=== PATIENT | female | born 1965 | race Caucasian/White ===

== ENCOUNTER → 2017-11-23 | Outpatient (CLI) | payer BC ==
--- NOTE | 2017-11-23 16:06 | Diagnostic Imaging Report ---
INDICATION: Clinical findings of goiter. TECHNIQUE: Grayscale sonographic images of the thyroid gland. CORRELATION STUDY: None. FINDINGS: RIGHT LOBE: 4.8 x 1.3 x 1.2 cm. Within the superior medial aspect a very small slightly hypoechoic nodule measures 4 x 3 x 3 mm. Remainder of the right thyroid gland echotexture is unremarkable. LEFT LOBE: 4.4 x 1.4 x 1.0 cm. There is normal echotexture about the left lobe. Isthmus appears unremarkable. IMPRESSION: Slightly elongated thyroid gland. Very small, nonspecific nodule about the right lobe. (Normal gland size: 4-5 x 2 x 2 cm) Dictated by: Dictated on workstation # [id number]
--- NOTE | 2017-12-05 14:22 | Diagnostic Imaging Report ---
Indication: Routine screening. Comparison is made with prior mammogram from 10/02/2014 and 03/10/2010. 2-D and 3-D bilateral mammography was performed with CAD. Implant protocol was utilized. Scattered fibroglandular densities are identified bilaterally. The patient has bilateral breast implants. Implant contours appear to be smooth. No mass or malignant appearing microcalcifications are seen. The axillae are unremarkable. Impression: BI-RADS category 2 No mammographic features suspicious for malignancy are identified. ACR BI-RADS Category 2: Benign findings. Result letter will be mailed to the patient. Note: At least 10% of breast cancer is not imaged by mammography. Dictated by: Dictated on workstation # [id number]
== END ==
LOC: RAD 15:20
PROVIDERS: ATTEND Family Medicine
DX: Z12.31 Encounter for screening mammogram for malignant neoplasm of breast (principal); E04.9 Nontoxic goiter, unspecified
CPT/HCPCS: 76536; 77067

== ENCOUNTER → 2018-04-05 | Outpatient (CLI) | payer BC ==
[~2018-04-05] VITALS: Ht 172.7 cm; Wt 62.1 kg
[~2018-04-05] MED LIST: ATOR10TA66 PO; CATHETER FLUSH 10 ML SYR IV PRN; METO-352 PO; VALA500T PO
[2018-04-05 09:13] VITALS: BP 126/82
[2018-04-05 09:21] VITALS: BP 149/80
[2018-04-05 09:24] VITALS: BP 151/81
--- NOTE | 2018-04-05 20:05 | STRESS TEST ---
DATE OF SERVICE: 04/05/2018 EXERCISE MYOVIEW STRESS TEST REPORT Baseline heart rate is 60. Baseline blood pressure 142/76. Baseline EKG is sinus rhythm with no ischemic changes. In summary, the patient was injected with 10.24 mCi of technetium-99 Myoview and the resting images were obtained. Then, the patient started exercising with baseline heart rate, blood pressure and EKG mentioned above. She was able to exercise for a total of 11 minutes on standard Niall protocol. With peak exercise level, EKG was showing [address] depression in II, III, aVF, V4 and V5. Blood pressure was 170/80. She was injected with 31.8 mCi of technetium-99 Myoview with peak stress level. During recovery, heart rate and blood pressure returned to baseline. EKG returned to baseline. The resting and stressed images were reviewed and compared in the short axis, horizontal long axis, and vertical long axis views. Review of the images showed breast attenuation affecting the quality of the images. There is questionable reversible ischemia involving the mid to apical anterior wall and anterolateral wall. SSS is 7, SDS 7, TID value 1.08. On the gated images, the left ventricle appeared to be normal size with normal contractility. Calculated ejection fraction 60%. CONCLUSION: 1. Excellent exercise tolerance, a total of 11 minutes on standard Niall protocol, total of 12.1 METS achieving 84% of maximum expected heart rate. 2. Appropriate heart rate and blood pressure response to exercise returned to baseline during recovery. 3. Nondiagnostic EKG changes with exercise returned to baseline during recovery. 4. Breast attenuation with mild reversible ischemia involving the whole anterior wall and anterolateral wall. 5. Normal left ventricular size with normal contractility. Calculated ejection fraction 60%. Job ID: [id number] DocumentID: [id number] Dictated Date: 04/05/2018 16:40:20 Building Economist Date: 04/05/2018 20:04:44 Dictated By: LESLIE MCCRACKEN MD
== END ==
LOC: CARD 07:28
PROVIDERS: ATTEND Internal Medicine Cardiovascular Disease
DX: R00.2 Palpitations (principal); R06.02 Shortness of breath; E07.9 Disorder of thyroid, unspecified; G43.909 Migraine, unspecified, not intractable, without status migrainosus
CPT/HCPCS: 78452; 93017

== ENCOUNTER → 2018-04-13 | Outpatient (CLI) | payer BC ==
[~2018-04-13] MED LIST changes: -CATHETER FLUSH 10 ML SYR IV PRN
== END ==
LOC: CARD 12:53
PROVIDERS: ATTEND Internal Medicine Cardiovascular Disease
DX: R00.2 Palpitations (principal); R06.02 Shortness of breath; E07.9 Disorder of thyroid, unspecified; G43.909 Migraine, unspecified, not intractable, without status migrainosus
CPT/HCPCS: 93306

== ENCOUNTER 2018-04-19 07:04 | Day surgery (SDC) | payer BC ==
[~2018-04-19] VITALS: Ht 172.7 cm; Wt 61.7 kg
[2018-04-19] VITALS (12 sets, daily range): BP systolic 125–142; BP diastolic 70–87
--- OUTSIDE RECORDS SUMMARY | 2018-04-19 07:17 | XMS REPORT ---
Author Author REBECA MARIE Organization [employer] Address Unknown Phone Unavailable Care Team Providers Care Transportation Aid Name Role Phone REBECA MARIE Unavailable Allergies No Known Allergies Problems Problem Type Condition Code Onset Dates Condition Status Problem Menopausal and female climacteric states N95.1 Active Problem Acquired hypothyroidism E03.9 Active Problem Essential hypertension I10 Active Assessment Acquired hypothyroidism E03.9 Active Assessment Encounter for medical examination to establish care Z00.00 Active Problem Encounter for medical examination to establish care Z00.00 Active Assessment Essential hypertension I10 Active Medications No Known Medications Procedures Procedure Coding System Code Date ASSAY OF FREE THYROXINE CPT-4 34194 May 18, 2016 COMPLETE CBC W/AUTO DIFF WBC CPT-4 25535 May 18, 2016 ASSAY THYROID STIM HORMONE CPT-4 58432 May 18, 2016 COMPREHEN METABOLIC PANEL CPT-4 77747 May 18, 2016 LIPID PANEL CPT-4 67171 May 18, 2016 VENIPUNCT, ROUTINE* CPT-4 02215 May 18, 2016 Results Name Result Date Reference Range Unit Abnormality Flag ROUTINE VENIPUNCTURE Summary Purpose eClinical[employer] Submission
--- OUTSIDE RECORDS SUMMARY | 2018-04-19 07:17 | XMS REPORT ---
Author Author CANDACE FONSECA [facility] Address [address] [place] [address] Care Team Providers Care Record Tester Name Role Phone HIGINIOVALCANDACE Unavailable PROBLEMS Type Condition ICD9-CM Code [id number] Code Onset Dates Condition Status SNOMED Code Assessment Sore throat J02.9 Feb, Active 794535985 ALLERGIES Substance Reaction Event Type Date Status Sulfamethoxazole-Trimethoprim Unknown Drug Allergy Feb, Active SOCIAL HISTORY No smoking Hx information available PLAN OF CARE VITAL SIGNS Height 68 in 2016-03-23 Weight 150 lbs 2016-03-23 Heart Rate 76 bpm 2016-03-23 Respiratory Rate 18 2016-03-23 BMI 22.80 kg/m2 2016-03-23 Blood pressure systolic 120 mmHg 2016-03-23 Blood pressure diastolic 68 mmHg 2016-03-23 MEDICATIONS Medication Instructions Dosage Frequency Start Date End Date Duration Status Estrace 0.1 MG/GM Active Toprol XL 25 MG Orally Once a day 1 tablet 24h Active Levothyroxine Sodium 25 MCG Orally Once a day 1 tablet 24h Active Valacyclovir HCl 500 MG Orally Once a day 1 tablet 24h Active Divigel 1 MG/GM Transdermal Once a day 1 application to affected area 24h Active RESULTS Name Result Date Reference Range STREP A (IN HOUSE) STREP A negative Control + Lot # [id number] Exp date 06/23/2016 PROCEDURES Procedure Date Ordered Related Diagnosis Body Site STREP A ASSAY W/OPTIC Mar 23, 2016 Office Visit, Est Pt., Level 3 Mar 23, 2016 IMMUNIZATIONS No Known Immunizations
--- OUTSIDE RECORDS SUMMARY | 2018-04-19 07:17 | XMS REPORT ---
Author Author REBECA MARIE [facility] [employer] Address Unknown Phone Unavailable Care Team Providers Care Merchandising Execution Associate Name Role Phone REBECA MARIE Unavailable Allergies No Known Allergies Problems Problem Type Condition Code Onset Dates Condition Status Problem Menopausal and female climacteric states N95.1 Active Problem Acquired hypothyroidism E03.9 Active Problem Essential hypertension I10 Active Problem Encounter for medical examination to establish care Z00.00 Active Medications Medication Code System Code Instructions Start Date End Date Status Dosage Atorvastatin Calcium [facility] [address]-84 10 mg Orally Once a day May 31, 2016 1 tablet Results No Known Results Summary Purpose eClinicalWorks Submission
--- OUTSIDE RECORDS SUMMARY | 2018-04-19 07:17 | XMS REPORT ---
Author Author REBECA MARIE [facility] Address [address] [place] [address] Care Team Providers Care Power Shear Operator Name Role Phone REBECA MARIE Unavailable PROBLEMS Type Condition ICD9-CM Code [id number] Code Onset Dates Condition Status SNOMED Code Problem Seasonal allergic rhinitis, unspecified allergic rhinitis trigger J30.2 Active 564730267 Problem Hypercholesterolemia E78.00 Active 41367409 Problem Acquired hypothyroidism E03.9 Active 712582821 Problem Essential hypertension I10 Active 69922755 Problem Encounter for medical examination to establish care Z00.00 Active 189014528 Problem Menopausal and female climacteric states N95.1 Active 029076640 ALLERGIES Unknown Allergies SOCIAL HISTORY No smoking Hx information available PLAN OF CARE VITAL SIGNS MEDICATIONS Unknown Medications RESULTS No Results PROCEDURES No Known procedures IMMUNIZATIONS No Known Immunizations
--- OUTSIDE RECORDS SUMMARY | 2018-04-19 07:17 | XMS REPORT ---
Author Author REBECA MARIE [facility] Address [address] [place] [address] Care Team Providers Care Account Management Assistant Name Role Phone REBECA MARIE Unavailable PROBLEMS Type Condition ICD9-CM Code [id number] Code Onset Dates Condition Status SNOMED Code Problem Essential hypertension I10 Active 79474388 Problem Menopausal and female climacteric states N95.1 Active 303531700 Problem Acquired hypothyroidism E03.9 Active 061682794 Problem Encounter for medical examination to establish care Z00.00 Active 141853462 ALLERGIES Unknown Allergies SOCIAL HISTORY No smoking Hx information available PLAN OF CARE VITAL SIGNS MEDICATIONS Medication Instructions Dosage Frequency Start Date End Date Duration Status Levothyroxine Sodium 25 MCG Orally Once a day 1 tablet 24h Active Toprol XL 25 MG Orally Once a day 1 tablet 24h Active Valacyclovir HCl 500 MG Orally Once a day 1 tablet 24h Active RESULTS No Results PROCEDURES No Known procedures IMMUNIZATIONS No Known Immunizations
--- OUTSIDE RECORDS SUMMARY | 2018-04-19 07:17 | XMS REPORT ---
Author Author REBECA MARIE Organization [employer] Address Unknown Phone Unavailable Care Team Providers Care Operations Advisor Name Role Phone REBECA MARIE Unavailable Allergies No Known Allergies Problems Problem Type Condition Code Onset Dates Condition Status Problem Menopausal and female climacteric states N95.1 Active Problem Acquired hypothyroidism E03.9 Active Problem Essential hypertension I10 Active Problem Encounter for medical examination to establish care Z00.00 Active Medications Medication Code System Code Instructions Start Date End Date Status Dosage Estrace [facility] [address]-44 0.1 MG/GM Vaginal Once a day 1 gram Premarin [facility] [address]-19 0.625 MG/GM Vaginal Once a day May 06, 2016 as directed Divigel [facility] [address]-22 1 MG/GM Transdermal Once a day 1 application to affected area Results No Known Results Summary Purpose eClinicalWorks Submission
--- OUTSIDE RECORDS SUMMARY | 2018-04-19 07:17 | XMS REPORT ---
Author Author Jordan REBECA Organization [facility] Address [address] [place] [address] Care Team Providers Care Lock Tender Chief Operator Name Role Phone REBECA Ortega Unavailable PROBLEMS Type Condition ICD9-CM Code IMU07-SI Code Onset Dates Condition Status SNOMED Code Problem Encounter for medical examination to establish care Z00.00 Active 382866498 Problem Acquired hypothyroidism E03.9 Active 188061484 Problem Essential hypertension I10 Active 42410694 Problem Tachycardia R00.0 Active 5074454 Problem Herpes B00.9 Active 06116930 Problem Hypercholesterolemia E78.00 Active 95417470 Problem Menopausal and female climacteric states N95.1 Active 394122863 Problem 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 Active 39832248 Problem Seasonal allergic rhinitis, unspecified allergic rhinitis trigger J30.2 Active 811428895 ALLERGIES No Information ENCOUNTERS Encounter Location Date Diagnosis [place] [id number] [address] Aug, 2017 Menopausal and female climacteric states N95.1 [place] [address] [address] May, Essential hypertension I10 ; Tachycardia R00.0 ; Postmenopausal Z78.0 ; Menopausal and female climacteric states N95.1 ; Acquired hypothyroidism E03.9 ; 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 ; Herpes B00.9 and Bronchitis J40 [facility] [address] [address] Apr, Acquired hypothyroidism E03.9 [facility] [address] [address] Apr, Essential hypertension I10 ; Acquired hypothyroidism E03.9 and Hypercholesterolemia E78.00 [place] [address] [place] [id number] [place] [address] Apr, [facility] [address] [place] [id number] [place] [address] Mar, Essential hypertension I10 ; Hypercholesterolemia E78.00 and Acquired hypothyroidism E03.9 [facility] [address] [place] [id number] [place] [address] November, [facility] [address] [address] November, [facility] [address] [place] [id number] [place] [address] Oct, Essential hypertension I10 ; Acquired hypothyroidism E03.9 ; Menopausal and female climacteric states N95.1 ; Hypercholesterolemia E78.00 and Seasonal allergic rhinitis, unspecified allergic rhinitis trigger J30.2 [facility] [address] [address] Oct, [facility] [address] [place] [id number] [place] [address] Oct, Bronchitis J40 and Cough R05 [facility] [address] [place] [id number] [place] [address] Oct, Seasonal allergic rhinitis, unspecified allergic rhinitis trigger J30.2 [facility] [address] [place] [id number] [place] [address] Jul, [facility] [address] [place] [id number] [place] [address] Apr, [facility] [address] [place] [id number] [place] [address] Apr, Essential hypertension I10 ; Acquired hypothyroidism E03.9 and Encounter for medical examination to establish care Z00.00 [facility] [address] [place] [id number] [place] [id number] Apr, Pharyngitis, unspecified etiology J02.9 [facility] [address], [place] [address] Apr, [facility] [address] [place] [address] Mar, Essential hypertension I10 ; Menopausal and female climacteric states N95.1 ; Acquired hypothyroidism E03.9 and Encounter for medical examination to establish care Z00.00 [facility] [address] [place] [id number] [place] [address] Mar, [facility] [address] [place] [id number] [place] [address] Mar, [facility] [address] [place] [id number] [place] [address] Mar, [facility] [address] [place] [id number] [place] [phone] Feb, Sore throat J02.9 [facility] [address] [place] [address] Sep, Sore throat J02.9 and Acute streptococcal pharyngitis J02.0 [facility] [address] [place] [id number] [place] [address] Mar, Folliculitis 704.8 IMMUNIZATIONS No Known Immunizations SOCIAL HISTORY Never Assessed REASON FOR VISIT Requests return call PLAN OF CARE VITAL SIGNS MEDICATIONS Unknown Medications RESULTS No Results PROCEDURES No Known procedures INSTRUCTIONS MEDICATIONS ADMINISTERED No Known Medications MEDICAL (GENERAL) HISTORY Type Description Date Medical History Hypothyroidism Medical History Menopausal Medical History Hypertension Surgical History partial hysterectomy 2005 Surgical History tonsillectomy and adenoidectomy
--- OUTSIDE RECORDS SUMMARY | 2018-04-19 07:17 | XMS REPORT ---
Author Author REBECA MARIE [facility] Address [address] [place] [address] Care Team Providers Care Special Programs Director Name Role Phone REBECA MARIE Unavailable PROBLEMS Unknown Problems ALLERGIES Unknown Allergies SOCIAL HISTORY No smoking Hx information available PLAN OF CARE VITAL SIGNS MEDICATIONS Medication Instructions Dosage Frequency Start Date End Date Duration Status Toprol XL 25 MG Orally Once a day 1 tablet 24h Active Valacyclovir HCl 500 MG Orally Once a day 1 tablet 24h Active RESULTS No Results PROCEDURES No Known procedures IMMUNIZATIONS No Known Immunizations
--- OUTSIDE RECORDS SUMMARY | 2018-04-19 07:17 | XMS REPORT ---
Author Author IAN MONA Organization [facility] Address [address] [place] [address] Care Team Providers Care Restaurant Manager Name Role Phone MONA SOSA Unavailable PROBLEMS Type Condition ICD9-CM Code MPS35-MV Code Onset Dates Condition Status SNOMED Code Problem Encounter for medical examination to establish care Z00.00 Active 257724881 Problem Acquired hypothyroidism E03.9 Active 848779498 Problem Essential hypertension I10 Active 47438790 Problem Tachycardia R00.0 Active 1909753 Problem Herpes B00.9 Active 89022648 Problem Hypercholesterolemia E78.00 Active 10778409 Problem Menopausal and female climacteric states N95.1 Active 516629637 Problem 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 Active 50550066 Problem Seasonal allergic rhinitis, unspecified allergic rhinitis trigger J30.2 Active 514311933 ALLERGIES No Information ENCOUNTERS Encounter Location Date Diagnosis [place] [address] [address] Dec, [place] [address] [address] Aug, Menopausal and female climacteric states N95.1 [facility] [address] [address] May, Essential hypertension I10 ; Tachycardia R00.0 ; Postmenopausal Z78.0 ; Menopausal and female climacteric states N95.1 ; Acquired hypothyroidism E03.9 ; 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 ; Herpes B00.9 and Bronchitis J40 [facility] [address] [place] [id number] [place] [address] Apr, Acquired hypothyroidism E03.9 [place] [address] [address] Apr, Essential hypertension I10 ; Acquired hypothyroidism E03.9 and Hypercholesterolemia E78.00 [facility] [address] [place] [id number] [place] [address] Apr, [facility] [address] [place] [id number] [place] [address] Mar, Essential hypertension I10 ; Hypercholesterolemia E78.00 and Acquired hypothyroidism E03.9 [facility] [address] [address] November, [facility] [address] [place] [id number] [place] [address] November, [facility] [address] [place] [id number] [place] [address] Oct, Essential hypertension I10 ; Acquired hypothyroidism E03.9 ; Menopausal and female climacteric states N95.1 ; Hypercholesterolemia E78.00 and Seasonal allergic rhinitis, unspecified allergic rhinitis trigger J30.2 [facility] [address] [place] [id number] [place] [address] Oct, [facility] [address] [address] Oct, Bronchitis J40 and Cough R05 [facility] [address] [place] [id number] [place] [address] Oct, Seasonal allergic rhinitis, unspecified allergic rhinitis trigger J30.2 [facility] [address] [place] [id number] [place] [address] Jul, [facility] [address] [place] [id number] [place] [address] Apr, [facility] [address] [place] [id number] [place] [address] Apr, Essential hypertension I10 ; Acquired hypothyroidism E03.9 and Encounter for medical examination to establish care Z00.00 [facility] [address] [id number] Apr, Pharyngitis, unspecified etiology J02.9 [facility] [address] [address] Apr, [facility] [address] [address] Mar, Essential hypertension I10 ; Menopausal and female climacteric states N95.1 ; Acquired hypothyroidism E03.9 and Encounter for medical examination to establish care Z00.00 [facility] [address] [address] Mar, [facility] [address] [place] [id number] [place] [address] Mar, [facility] [address] [place] [address] Mar, [facility] [address] [id number] Feb, Sore throat J02.9 [facility] [address] [place] [id number] [address] Sep, Sore throat J02.9 and Acute streptococcal pharyngitis J02.0 [facility] [address] [address] Mar, Folliculitis 704.8 IMMUNIZATIONS No Known Immunizations SOCIAL HISTORY Never Assessed REASON FOR VISIT refill PLAN OF CARE VITAL SIGNS MEDICATIONS Medication Instructions Dosage Frequency Start Date End Date Duration Status Atorvastatin Calcium 10 mg TAKE ONE TABLET BY MOUTH ONCE DAILY 14 Active RESULTS No Results PROCEDURES No Known procedures INSTRUCTIONS MEDICATIONS ADMINISTERED No Known Medications MEDICAL (GENERAL) HISTORY Type Description Date Medical History Hypothyroidism Medical History Menopausal Medical History Hypertension Surgical History partial hysterectomy 2004 Surgical History tonsillectomy and adenoidectomy
--- OUTSIDE RECORDS SUMMARY | 2018-04-19 07:17 | XMS REPORT ---
Author Author Jordan REBECA Organization [facility] Address [address] [place] [address] Care Team Providers Care Operator Control Room Name Role Phone REBECA Ortega Unavailable PROBLEMS Type Condition ICD9-CM Code [id number] Code Onset Dates Condition Status SNOMED Code Problem Encounter for medical examination to establish care Z00.00 Active 342949808 Problem Acquired hypothyroidism E03.9 Active 094056232 Problem Essential hypertension I10 Active 58156232 Problem Tachycardia R00.0 Active 1032041 Problem Herpes B00.9 Active 57153889 Problem Hypercholesterolemia E78.00 Active 97809764 Problem Menopausal and female climacteric states N95.1 Active 227351683 Problem 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 Active 51604774 Problem Seasonal allergic rhinitis, unspecified allergic rhinitis trigger J30.2 Active 628988382 ALLERGIES No Information ENCOUNTERS Encounter Location Date Diagnosis [place] [id number] [address] Aug, Menopausal and female climacteric states N95.1 [place] [address] [address] May, Essential hypertension I10 ; Tachycardia R00.0 ; Postmenopausal Z78.0 ; Menopausal and female climacteric states N95.1 ; Acquired hypothyroidism E03.9 ; 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 ; Herpes B00.9 and Bronchitis J40 [facility] [address] [address] Apr, Acquired hypothyroidism E03.9 [facility] [address] [address] Apr, Essential hypertension I10 ; Acquired hypothyroidism E03.9 and Hypercholesterolemia E78.00 [place] [address] [place] [id number] [place] [address] Apr, [facility] [address] [place] [id number] [place] [address] Mar, Essential hypertension I10 ; Hypercholesterolemia E78.00 and Acquired hypothyroidism E03.9 [facility] [address] [place] [id number] [place] [address] November, [facility] [address] [address] November, [facility] [address] [place] [id number] [place] [address] Oct, Essential hypertension I10 ; Acquired hypothyroidism E03.9 ; Menopausal and female climacteric states N95.1 ; Hypercholesterolemia E78.00 and Seasonal allergic rhinitis, unspecified allergic rhinitis trigger J30.2 [facility] [address] [address] Oct, [facility] [address] [place] [id number] [place] [address] Oct, Bronchitis J40 and Cough R05 [facility] [address] [place] [id number] [place] [phone] Oct, Seasonal allergic rhinitis, unspecified allergic rhinitis trigger J30.2 [facility] [address] [place] [id number] [place] [phone] Jul, [facility] [address] [place] [id number] [place] [phone] Apr, [facility] [address] [place] [id number] [place] [address] Apr, Essential hypertension I10 ; Acquired hypothyroidism E03.9 and Encounter for medical examination to establish care Z00.00 [facility] [address] [place] [id number] [place] [phone] Apr, Pharyngitis, unspecified etiology J02.9 [facility] [address] [id number] Apr, [facility] [id number] [place] [address] Mar, Essential hypertension I10 ; Menopausal and female climacteric states N95.1 ; Acquired hypothyroidism E03.9 and Encounter for medical examination to establish care Z00.00 [facility] [address] [place] [id number] [place] [address] Mar, [facility] [address] [place] [id number] [place] [phone] Mar, [facility] [address] [place] [id number] [place] [address] Mar, [facility] [address] [place] [id number] [place] [phone] Feb, Sore throat J02.9 [facility] [address] [address] Sep, Sore throat J02.9 and Acute streptococcal pharyngitis J02.0 [facility] [address] [place] [id number] [place] [address] Mar, Folliculitis 704.8 IMMUNIZATIONS No Known Immunizations SOCIAL HISTORY Never Assessed REASON FOR VISIT PLAN OF CARE VITAL SIGNS MEDICATIONS Medication Instructions Dosage Frequency Start Date End Date Duration Status Valacyclovir HCl 500 mg Orally Once a day 1 tablet 24h Active Toprol XL 25 MG Orally Once a day 1 tablet 24h Active Levothyroxine Sodium 25 MCG Orally Once a day 1 tablet 24h Active Atorvastatin Calcium 10 mg Orally Once a day 1 tablet 24h May, Active RESULTS No Results PROCEDURES No Known procedures INSTRUCTIONS MEDICATIONS ADMINISTERED No Known Medications MEDICAL (GENERAL) HISTORY Type Description Date Medical History Hypothyroidism Medical History Menopausal Medical History Hypertension Surgical History partial hysterectomy 2005 Surgical History tonsillectomy and adenoidectomy
--- OUTSIDE RECORDS SUMMARY | 2018-04-19 07:17 | XMS REPORT ---
Author Author REBECA MARIE [facility] Address [address] [place] [address] Care Team Providers Care Db2 Dba Name Role Phone REBECA MARIE Unavailable PROBLEMS Type Condition ICD9-CM Code [id number] Code Onset Dates Condition Status SNOMED Code Problem Seasonal allergic rhinitis, unspecified allergic rhinitis trigger J30.2 Active 168590132 Problem Hypercholesterolemia E78.00 Active 26297142 Problem Acquired hypothyroidism E03.9 Active 607926441 Problem Essential hypertension I10 Active 33188629 Problem Encounter for medical examination to establish care Z00.00 Active 263472157 Problem Menopausal and female climacteric states N95.1 Active 405998356 ALLERGIES No Information SOCIAL HISTORY Never Assessed PLAN OF CARE VITAL SIGNS MEDICATIONS Medication Instructions Dosage Frequency Start Date End Date Duration Status Valacyclovir HCl 500 MG Orally Once a day 1 tablet 24h Active RESULTS No Results PROCEDURES No Known procedures IMMUNIZATIONS No Known Immunizations MEDICAL (GENERAL) HISTORY Type Description Date Medical History Hypothyroidism Medical History Menopausal Medical History Hypertension Surgical History partial hysterectomy 2004 Surgical History tonsillectomy and adenoidectomy
--- OUTSIDE RECORDS SUMMARY | 2018-04-19 07:18 | XMS REPORT ---
Author Author REBECA MARIE Organization [facility] Address [address] [place] [address] Care Team Providers Care E Commerce Developer Name Role Phone REBECA MARIE Unavailable PROBLEMS Type Condition ICD9-CM Code [id number] Code Onset Dates Condition Status SNOMED Code Problem Encounter for medical examination to establish care Z00.00 Active 113086320 Problem Acquired hypothyroidism E03.9 Active 057613503 Problem Essential hypertension I10 Active 90515346 Problem Tachycardia R00.0 Active 3836373 Problem Herpes B00.9 Active 86953819 Problem Hypercholesterolemia E78.00 Active 03561250 Problem Menopausal and female climacteric states N95.1 Active 620998553 Problem 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 Active 37116932 Problem Seasonal allergic rhinitis, unspecified allergic rhinitis trigger J30.2 Active 776325887 ALLERGIES No Information SOCIAL HISTORY Never Assessed PLAN OF CARE VITAL SIGNS MEDICATIONS Medication Instructions Dosage Frequency Start Date End Date Duration Status Valacyclovir HCl 500 MG Orally Once a day 1 tablet 24h 30 days Active RESULTS No Results PROCEDURES No Known procedures IMMUNIZATIONS No Known Immunizations MEDICAL (GENERAL) HISTORY Type Description Date Medical History Hypothyroidism Medical History Menopausal Medical History Hypertension Surgical History partial hysterectomy 2004 Surgical History tonsillectomy and adenoidectomy
[2018-04-19] MEDS ORDERED: NS IV 1000 ML 1,000 ML IV SCH ×2 (07:22→09:13)
[2018-04-19] MEDS ORDERED: LIDOCAINE 1% INJ 20 ML 20 ML VIAL ONE (07:23)
[2018-04-19] MEDS ORDERED: NS IV 1000 ML 1,000 ML ONE (07:23)
[2018-04-19] MEDS ORDERED: HEParin (CATH LAB) 2,000 ML IV ONE (07:23)
--- NOTE | 2018-04-19 07:46 | Diagnostic Imaging Report ---
INDICATION: Coronary artery disease and dyspnea. Portable upright AP view of the chest is obtained. COMPARISON: No previous study is available for comparison at this time. FINDINGS: Heart size and pulmonary vasculature are within normal limits, and the lungs are clear, bilaterally. IMPRESSION: Unremarkable chest. Dictated by: Dictated on workstation # [id number]
[2018-04-19 08:10] LABS: HEMOGLOBIN 12.4 G/DL (11.5-16.0); MEAN PLATELET VOLUME 10.3 FL (7.4-10.4); RED BLOOD COUNT 4.13 10^6/uL (4.35-5.85); RED CELL DISTRIBUTION WIDTH 13.6 % (10.0-14.5); WHITE BLOOD COUNT 4.9 10^3/uL (4.3-11.0)
[2018-04-19] MEDS ORDERED: VALA500T PO (08:10)
[2018-04-19] MEDS ORDERED: ATOR10TA66 PO (08:10)
[2018-04-19] MEDS ORDERED: METO-352 PO (08:10)
[2018-04-19 08:32] LABS: ALANINE AMINOTRANSFERASE 19 U/L (0-55); ALBUMIN 4.2 GM/DL (3.2-4.5); ALKALINE PHOSPHATASE 57 U/L (40-136); BILIRUBIN,TOTAL 0.7 MG/DL (0.1-1.0); BUN/CREATININE RATIO 17; CALCIUM 9.2 MG/DL (8.5-10.1); CARBON DIOXIDE 28 MMOL/L (21-32); CHLORIDE 106 MMOL/L (98-107); CHOLESTEROL 161 MG/DL (< 200); CREATININE SERUM 0.78 MG/DL (0.60-1.30); GFR ESTIMATED > 60; GLUCOSE 87 MG/DL (70-105); HDL CHOLESTEROL 80 MG/DL (40-60); POTASSIUM 3.9 MMOL/L (3.6-5.0); SODIUM 141 MMOL/L (135-145); TOTAL PROTEIN 6.5 GM/DL (6.4-8.2); TRIGLYCERIDES 59 MG/DL (<150); VLDL CHOLESTEROL 12 MG/DL (5-40)
--- NOTE | 2018-04-19 08:38 | Cardiac Procedure Note-CS/ASA ---
Pre-Procedure Note Pre-Op Procedure Note H&P Reviewed The H&P was reviewed, patient examined and no changes noted. Date H&P Reviewed: Apr 19, 2018 Time H&P Reviewed: 08:38 Conscious Sedation Pre-Proced Time 08:38 ASA Score 3 For ASA 3 and 4: Consider anesthesia and medical clearance. Also, for patients with a history of failed moderate sedation consider anesthesia. Airway Lungs Heart ASA score ASA 1: a normal healthy patient ASA 2: a patient with a mild systemic disease (mid diabetes, controlled hypertension, obesity x ASA 3: a patient with a severe systemic disease that limits activity (angina , COPD, prior Myocardial infarction) ASA 4: a patient with an incapacitating disease that is a constant threat to life (CHF, renal failure) ASA 5: a moribund patient not expected to survive 24 hrs. (ruptured aneurysm) ASA 6: a declared brain patient whose organs are being harvested. For emergent operations, add the letter E after the classification Mallampati Classification Grade 3 Sedation Plan Analgesia, Amnesia, Plan communicated to team members, Discussed options with patient/fam, Discussed risks with patient/fam The patient is an appropriate candidate to undergo the planned procedure, sedation, and anesthesia. The patient immediately re-assessed prior to indication. LESLIE MCCRACKEN MD Apr 19, 2018 08:38
[2018-04-19] MEDS ORDERED: fentaNYL INJECTION 100 MCG/2 ML AMP ONE (08:39)
[2018-04-19] MEDS ORDERED: MIDAZOLAM 5 MG/5 ML (VERSED) VIAL ONE (08:39)
[2018-04-19] MEDS ORDERED: HEParin 1000 UNIT/ML (10ML VIAL) FOR BOLUS ONE (08:39)
[2018-04-19] MEDS ORDERED: VERAPAMIL 5 MG/2 ML (CALAN) VIAL IV ONE (08:39)
[2018-04-19] MEDS ORDERED: NITRO DRIP 25000 MCG/D5W 250 ML IV ONE (08:39)
--- NOTE | 2018-04-19 09:15 | Discharge Inst-Post CATH ---
Discharge Inst-CATH Post Cardiac Cath D/C Inst Follow Up/Plan Appointment with Dr. Perez's office in 2-4 weeks CARDIAC CATH DISCHARGE INSTRUCTIONS *Hold Metformin for 48 hours post heart cath. ACTIVITY * Go Home directly and rest. * Limit activity of the leg (or wrist if it was used) for 7 days including aerobics, swimming, jogging, bicycling, etc. * Restrict stair-climbing for 7 days if possible, if not, climb up with your non -cath leg, then bring together on the same step. * Avoid lifting, pushing, pulling or excessive movement of the affected extremity for 7 days. * Customary sexual activity may be resumed after 2 days-use caution not to use a position that strains or causes pain to the affected extremity. * No driving for 24 hours. * NO SMOKING. * Avoid straining for bowel movements for 7 days. * Gentle walking on level ground is allowed. * Returning to work will depend on the type of procedure and the results. Your doctor will discuss this with you. CALL YOUR DOCTOR FOR ANY OF THE FOLLOWING: *If bleeding from the puncture site occurs- Apply gentle pressure to site with clean cloth and call your doctor or EMS. * If a knot or lump forms under the skin, increases in size, or causes pain. * If bruising appears to be worsening or moving further down your leg instead of disappearing. * Temperature above 101 F. CARE OF YOUR GROIN INCISION; * Bruising or purple discoloration of the skin near the puncture site is common. * You may shower only, no bathtub bathing for 5 days. Be careful to avoid slipping as your leg may feel stiff. * If a closure device was used on your femoral artery, please see the attached guide regarding care of the device and your leg. * Leave the dressing on, until removed by office staff. CARE OF YOUR WRIST INCISION; * Bruising or purple discoloration of the skin near the puncture site is common. * You may shower. * DO NOT submerge wrist. * Leave dressing on, until removed by office staff.. LESLIE PEREZ MD Apr 19, 2018 09:15
--- NOTE | 2018-04-19 09:17 | Cardiac Cath Report ---
Cardiac Cath Report Physician (s)/Character Artist (s) Physician LESLIE MCCRACKEN MD Pre-Procedure Diagnosis Pre-Procedure Diagnosis: Coronary artery disease Post-Procedure Note Procedure Start Date: Apr 19, 2018 Name of Procedure: Left heart catheterization Findings/Procedure Note PROCEDURE NOTE: After explaining the procedure to the patient, all pros and cons were explained , all questions were answered. The patient signed the consent and then she was placed on the cardiac catheterization laboratory. Groin was prepped SL fashion local anesthesia was used. Sheath placed in the right radial artery. Seneca catheter was used to evaluate the coronaries, left ventricular pressure was measured no left ventricular gram was done At the end of the procedure the sheath was removed. FINDINGS: Hemodynamics LV 124/25 elevated end-diastolic pressure Aorta 123/78 mean of 96 ANATOMY: Left Main is free of obstructive disease Left Anterior Descending has mild disease nonobstructive disease Left Circumflex has mild disease nonobstructive disease Right Coronory Artery is free of obstructive disease CONCLUSION: 1. Mild coronary artery disease, no sig obstructive disease 2. Elevated left ventricular end diastolic pressure DISCUSSION AND RECOMMENDATION: Continue with medical therapy, no intervention is needed Anesthesia Type: Conscious Sedation Estimated blood loss (mL): 10 ml Contrast Amount: 21 ml Total Radiation Dose: 48 mGy Post-Procedure Diagnosis Post-operative diagnosis: Chest pain nonspecific etiology Coronary artery disease Hypertension Hyperlipidemia LESLIE MCCRACKEN MD Apr 19, 2018 09:17
== END 2018-04-19 12:04 | disposition home or self-care (01) ==
LOC: CATH 07:04 → 4TH 10:04 → CATH 12:04
PROVIDERS: ATTEND Internal Medicine Cardiovascular Disease
DX: R07.9 Chest pain, unspecified (principal); I25.10 Atherosclerotic heart disease of native coronary artery without angina pectoris; I10 Essential (primary) hypertension; E78.5 Hyperlipidemia, unspecified; R06.02 Shortness of breath; R53.83 Other fatigue; Z82.49 Family history of ischemic heart disease and other diseases of the circulatory system; Z79.899 Other long term (current) drug therapy
CPT/HCPCS: 36415; 71045; 80053; 80061; 85027; 85610; 85730; 87081; 93458

== ENCOUNTER → 2018-06-20 | Outpatient (CLI) | payer BC ==
--- NOTE | 2018-06-20 13:20 | Diagnostic Imaging Report ---
INDICATION: Thyroid nodule, followup. TECHNIQUE: Grayscale sonographic images of the thyroid gland. CORRELATION STUDY: 11/23/2017 FINDINGS: RIGHT LOBE: 4.6 x 1.5 x 1.2 cm. Small hypoechoic nodule superior pole 5 x 4 x 3 mm. Previously 4 x 3 x 3 mm, relatively stable to perhaps minimally increased. LEFT LOBE: 4.5 x 1.3 x 0.9 cm. There is normal echotexture about the left lobe. Isthmus appears unremarkable. IMPRESSION: Overall generally stable to perhaps very minimally increased size of a small hypoechoic nodule superior pole right lobe. (Normal gland size: 4-5 x 2 x 2 cm) Dictated by: Dictated on workstation # [id number]
== END ==
LOC: RAD 12:01
PROVIDERS: ATTEND Family Medicine
DX: E04.1 Nontoxic single thyroid nodule (principal)
CPT/HCPCS: 76536

== ENCOUNTER → 2019-08-13 | Outpatient (CLI) | payer OTHER ==
--- NOTE | 2019-08-13 11:21 | Diagnostic Imaging Report ---
PROCEDURE: US Thyroid. TECHNIQUE: Multiple real-time grayscale images were obtained of the thyroid in various projections. INDICATION: Thyroid nodule, follow-up. COMPARISON: Correlation is made with prior thyroid ultrasound from 06/20/2018. FINDINGS: Right lobe of thyroid measures 4.8 x 1.3 x 1.2 cm and the left lobe measures 4.1 x 1.2 x 1.1 cm. Isthmus is 1 mm in thickness. Tiny nodule upper pole right lobe of the thyroid is stable at approximately 4 mm x 2 mm x 3 mm. No new thyroid mass is detected. No dominant mass is seen. IMPRESSION: Stable tiny right upper pole thyroid nodule when compared with examination from 06/20/2018. Dictated by: Dictated on workstation # [id number]
== END ==
LOC: RAD 10:13
PROVIDERS: ATTEND Nurse Practitioner Family
DX: E04.1 Nontoxic single thyroid nodule (principal)
CPT/HCPCS: 76536

== ENCOUNTER → 2019-08-13 | Outpatient (CLI) | payer BC, OTHER ==
--- NOTE | 2019-08-13 12:17 | Diagnostic Imaging Report ---
INDICATION: Routine screening. Comparison is made with prior mammogram from 11/23/2017 and 10/02/2014. 2-D and 3-D bilateral screening mammography was performed with CAD. Patient has bilateral subpectoral breast implants. Implant contours are smooth. Breast parenchyma is heterogeneously dense, limiting the sensitivity of mammography. No mass or malignant-appearing microcalcifications are seen. The axillae are unremarkable. IMPRESSION: BI-RADS Category 2 No mammographic features suspicious for malignancy are identified. ACR BI-RADS Category 2: Benign findings. Result letter will be mailed to the patient. Note: At least 10% of breast cancer is not imaged by mammography. Dictated by: Dictated on workstation # [id number]
== END ==
LOC: RAD 10:15
PROVIDERS: ATTEND Obstetrics & Gynecology
DX: Z12.31 Encounter for screening mammogram for malignant neoplasm of breast (principal)
CPT/HCPCS: 77067

== ENCOUNTER → 2020-08-19 | Outpatient (CLI) | payer OTHER ==
[~2020-08-19] MED LIST changes: -VALA500T PO; +VALA500T7 PO
--- NOTE | 2020-08-19 15:57 | Diagnostic Imaging Report ---
INDICATION: Routine screening. COMPARISON: 08/13/2019 and 11/23/2017. TECHNIQUE: 2D and 3D bilateral screening mammography was performed with CAD. FINDINGS: Bilateral subpectoral breast implants are noted. The implant contours are smooth. No evidence of implant rupture is identified. Both breasts are heterogeneously dense, limiting the sensitivity of mammography. The parenchymal pattern is stable. No mass or malignant appearing microcalcifications are seen. The axillae are unremarkable. IMPRESSION: No mammographic features suspicious for malignancy are identified. ACR BI-RADS Category 2: Benign findings. Result letter will be mailed to the patient. Note: At least 10% of breast cancer is not imaged by mammography. Dictated by: Dictated on workstation # [id number]
== END ==
LOC: RAD 14:15
PROVIDERS: ATTEND Obstetrics & Gynecology
DX: Z12.31 Encounter for screening mammogram for malignant neoplasm of breast (principal)
CPT/HCPCS: 77063; 77067

== ENCOUNTER 2021-02-13 17:15 | Inpatient (IN) | payer OTHER ==
[~2021-02-13] VITALS: Ht 172.7 cm; Wt 65.6 kg
[2021-02-13] MEDS ORDERED: LACTATED RINGERS 1,000 ML IV ONE (17:45)
[2021-02-13] MEDS ORDERED: ACETAMINOPHEN 500 MG TAB (TYLENOL) PO PRN (17:45)
[2021-02-13] MEDS ORDERED: ASPIRIN 81 MG CHEW (CHILDREN'S ASA) PO ONE (17:45)
[2021-02-13 18:01] LABS: BASOPHILS % (AUTO) 0 % (0-10); EOSINOPHILS % (AUTO) 0 % (0-10); HEMATOCRIT 42 % (35-52); HEMOGLOBIN 13.7 g/dL (11.5-16.0); LYMPHOCYTES # (AUTO) 0.5 10^3/uL (1.0-4.0); LYMPHOCYTES % (AUTO) 9 % (12-44); MEAN CORPUSCULAR HEMOGLOBIN 30 pg (25-34); MEAN CORPUSCULAR HGB CONC 33 g/dL (32-36); MEAN CORPUSCULAR VOLUME 91 fL (80-99); MEAN PLATELET VOLUME 9.6 fL (9.0-12.2); MONOCYTES # (AUTO) 0.4 10^3/uL (0.0-1.0); MONOCYTES % (AUTO) 7 % (0-12); NEUTROPHILS # (AUTO) 4.6 10^3/uL (1.8-7.8); NEUTROPHILS % (AUTO) 84 % (42-75); PLATELET COUNT 196 10^3/uL (130-400); WHITE BLOOD COUNT 5.5 10^3/uL (4.3-11.0)
[2021-02-13 18:01] LABS: ABG BASE EXCESS 2.7 MMOL/L (-2.5-2.5); ABG OXYGEN SATURATION 88 % (94-100); ABG PCO2 34 MMHG (35-45); ABG PH 7.49 (7.37-7.43); ABG PO2 57 MMHG (79-93); ABG TCO2 26.6 MMOL/L (21.0-31.0)
[2021-02-13 18:03] LABS: ALLENS TEST YES-POS; INSPIRED O2 RA; PATIENT TEMP 100.9; VENTILATOR NO
[2021-02-13 18:09] LABS: ALBUMIN 4.2 GM/DL (3.2-4.5); CHLORIDE 98 MMOL/L (98-107); POTASSIUM 3.9 MMOL/L (3.6-5.0); SODIUM 139 MMOL/L (135-145)
[2021-02-13 18:10] LABS: CALCIUM 9.6 MG/DL (8.5-10.1)
[2021-02-13 18:11] LABS: GLUCOSE 110 MG/DL (70-105); INR 0.9 (0.8-1.4); PROTHROMBIN TIME PATIENT 12.7 SEC (12.2-14.7); TOTAL PROTEIN 8.4 GM/DL (6.4-8.2)
[2021-02-13 18:12] LABS: CARBON DIOXIDE 29 MMOL/L (21-32)
[2021-02-13 18:13] LABS: BILIRUBIN,TOTAL 0.5 MG/DL (0.1-1.0)
[2021-02-13 18:15] LABS: ALKALINE PHOSPHATASE 57 U/L (40-136); CREATININE SERUM 0.75 MG/DL (0.60-1.30); GFR ESTIMATED 80
[2021-02-13] MEDS ORDERED: KETOROLAC 30 MG/ML VIAL IVP ONE (18:15)
[2021-02-13 18:16] LABS: BUN/CREATININE RATIO 11
[2021-02-13 18:18] LABS: ALANINE AMINOTRANSFERASE 18 U/L (0-55)
--- NOTE | 2021-02-13 18:18 | ED Respiratory ---
General Chief Complaint: Respiratory Problems Stated Complaint: COUGH Nursing Triage Note: PT BROUGHT BY [facility] ON BLS. PT HAS BEEN HAVING SHORTNESS OF BREATH X'S 4 DAYS. PT WAS EXPOSED TO FRIENDS WHO WERE POSITIVE ABOUT A WEEK AGO. Source: family Exam Limitations: no limitations (JULES VIGIL) History of Present Illness Date Seen by Provider: Feb 13, 2021 Time Seen by Provider: 17:26 Initial Comments Patient to the ER by EMS from home with chief complaint of shortness of air nausea weakness whenever she stands up. She is been symptomatic since Tuesday, 5 days ago. She thinks she was exposed to Tuesday 7 days ago because 3 of the friends she hangs out with became positive with COVID-19. Patient had some nausea when she gets to coughing. She is had some chest pain with deep inspiration or coughing. She has no history of heart disease or kidney disease. No swelling in her hands or feet. She had an episode of diarrhea. She feels dehydrated. (JULES VIGIL) Allergies and Home Medications Allergies Coded Allergies: Sulfa (Sulfonamide Antibiotics) (Unverified Allergy, Unknown, 04/05/18) Home Medications Atorvastatin Calcium 10 Mg Tablet, 10 MG PO HS, (Reported) Metoprolol Succinate 50 Mg Tab.er.24h, 50 MG PO HS, (Reported) Valacyclovir HCl 500 Mg Tablet, 500 MG PO HS, (Reported) Patient Home Medication List Home Medication List Reviewed: Yes (JULES VIGIL) Review of Systems Review of Systems Constitutional: No chills, No diaphoresis EENTM: No ear discharge, No hearing loss, No ear pain Respiratory: cough, dyspnea on exertion; No phlegm; short of breath Cardiovascular: see HPI, chest pain; No edema, No Hx of Intervention, No palpitations, No syncope Gastrointestinal: No abdominal pain, No nausea, No vomiting Genitourinary: No discharge, No dysuria Musculoskeletal: No back pain, No joint pain Skin: No pruritus, No rash (JULES VIGIL) All Other Systems Reviewed Negative Unless Noted: Yes (JULES VIGIL) Past Ssemyvn-Dtwljs-Vvdczq Hx Patient Social History Tobacco Use?: Yes Smoking Status: Current Everyday Smoker E-Cig or Vaping type used: Nicotine Substance use?: No Alcohol Use?: Yes Alcohol type: Hard Liquor Alcohol Frequency: Daily Pt feels they are or have been: No (JULES VIGIL) Physical Exam Vital Signs - First Documented (ALAN FRANCIS DO) Capillary Refill : (JULES VIGIL) Height: 5'8.00" Weight: 136lbs. 0.0oz. [id number]; 22.00 BMI Method: General Appearance: WD/WN, mild distress Eyes: Bilateral Eye Normal Inspection, Bilateral Eye PERRL, Bilateral Eye EOMI HEENT: PERRL/EOMI, normal ENT inspection, TMs normal (Clear fluid middle ear bilateral), pharynx normal Neck: full range of motion, normal inspection Respiratory: lungs clear, normal breath sounds, no accessory muscle use, respiratory distress (Mild with oxygen saturations 91 to 92% on room air while at rest.) Cardiovascular: normal peripheral pulses, regular rate, rhythm, no edema Gastrointestinal: normal bowel sounds, non tender, soft Extremities: non-tender, normal capillary refill Neurologic/Psychiatric: case coordinator II-XII nml as tested, no motor/sensory deficits, alert, normal mood/affect, oriented x 3 Skin: normal color, warm/dry (JULES VIGIL) Focused Exam Lactate Level 02/13/21 17:35: Lactic Acid Level 1.61 (ALAN FRANCIS DO) Lactic Acid Level Laboratory Tests Test 02/13/21 17:35 Lactic Acid Level 1.61 MMOL/L (0.50-2.00) (ALAN FRANCIS DO) Progress/Results/Core Measures Suspected Sepsis SIRS Temperature: Pulse: 102 Respiratory Rate: 20 Laboratory Tests 02/13/21 17:35: White Blood Count 5.5 Blood Pressure 126 /79 Mean: 95 02/13/21 17:35: Lactic Acid Level 1.61 Laboratory Tests 02/13/21 17:35: Creatinine 0.75, INR Comment 0.9, Platelet Count 196, Total Bilirubin 0.5 (JULES VIGIL) Results/Orders Lab Results Laboratory Tests Test 02/13/21 17:20 02/13/21 17:35 02/13/21 17:44 Range/Units Influenza Type A (RT-PCR) Not Detected Not Detecte Influenza Type B (RT-PCR) Not Detected Not Detecte SARS-CoV-2 RNA (RT-PCR) Detected H Not Detecte White Blood Count 5.5 4.3-11.0 10^3/uL Red Blood Count 4.63 3.80-5.11 10^6/uL Hemoglobin 13.7 11.5-16.0 g/dL Hematocrit 42 35-52 % Mean Corpuscular Volume 91 80-99 fL Mean Corpuscular Hemoglobin 30 25-34 pg Mean Corpuscular Hemoglobin Concent 33 32-36 g/dL Red Cell Distribution Width 12.7 10.0-14.5 % Platelet Count 196 130-400 10^3/uL Mean Platelet Volume 9.6 9.0-12.2 fL Immature Granulocyte % (Auto) 1 % Neutrophils (%) (Auto) 84 H 42-75 % Lymphocytes (%) (Auto) 9 L 12-44 % Monocytes (%) (Auto) 7 0-12 % Eosinophils (%) (Auto) 0 0-10 % Basophils (%) (Auto) 0 0-10 % Neutrophils # (Auto) 4.6 1.8-7.8 10^3/uL Lymphocytes # (Auto) 0.5 L 1.0-4.0 10^3/uL Monocytes # (Auto) 0.4 0.0-1.0 10^3/uL Eosinophils # (Auto) 0.0 0.0-0.3 10^3/uL Basophils # (Auto) 0.0 0.0-0.1 10^3/uL Immature Granulocyte # (Auto) 0.0 0.0-0.1 10^3/uL Prothrombin Time 12.7 12.2-14.7 SEC INR Comment 0.9 0.8-1.4 Activated Partial Thromboplast Time 40 H 24-35 SEC Sodium Level 139 135-145 MMOL/L Potassium Level 3.9 3.6-5.0 MMOL/L Chloride Level 98 98-107 MMOL/L Carbon Dioxide Level 29 21-32 MMOL/L Anion Gap 12 5-14 MMOL/L Blood Urea Nitrogen 8 7-18 MG/DL Creatinine 0.75 0.60-1.30 MG/DL Estimat Glomerular Filtration Rate 80 BUN/Creatinine Ratio 11 Glucose Level 110 H 70-105 MG/DL Lactic Acid Level 1.61 0.50-2.00 MMOL/L Calcium Level 9.6 8.5-10.1 MG/DL Corrected Calcium 9.4 8.5-10.1 MG/DL Total Bilirubin 0.5 0.1-1.0 MG/DL Aspartate Amino Transf (AST/SGOT) 27 5-34 U/L Alanine Aminotransferase (ALT/SGPT) 18 0-55 U/L Alkaline Phosphatase 57 40-136 U/L Troponin I < 0.028 <0.028 NG/ML C-Reactive Protein High Sensitivity 24.17 H 0.00-0.50 MG/DL Total Protein 8.4 H 6.4-8.2 GM/DL Albumin 4.2 3.2-4.5 GM/DL Blood Gas Puncture Site RR Blood Gas Patient Temperature 100.9 Arterial Blood pH 7.49 H 7.37-7.43 Arterial Blood Partial Pressure CO2 34 L 35-45 MMHG Arterial Blood Partial Pressure O2 57 L 79-93 MMHG Arterial Blood HCO3 26 23-27 MMOL/L Arterial Blood Total CO2 26.6 21.0-31.0 MMOL/L Arterial Blood Oxygen Saturation 88 L 94-100 % Arterial Blood Base Excess 2.7 H -2.5-2.5 MMOL/L Loc Test YES-POS Blood Gas Ventilator Setting NO Blood Gas Inspired Oxygen RA (ALAN FRANCIS DO) Medications Given in ED Current Medications Medications Dose Ordered Sig/Leela Route Start Time Stop Time Status Last Admin Dose Admin Ketorolac Tromethamine 30 mg ONCE ONCE IVP 02/13/21 18:15 02/13/21 18:16 DC 02/13/21 18:18 30 MG (SONIAALAN K DO) Vital Signs/I&O 02/13/21 02/13/21 02/13/21 17:20 17:20 18:15 Temp 38.2 38.2 38.2 Pulse 102 102 Resp 20 20 B/P (MAP) 126/79 (95) 126/79 (95) Pulse Ox 94 94 O2 Delivery Room Air Nasal Cannula O2 Flow Rate 2.00 2.00 02/13/21 23:59 Intake Total 1000 ml Balance 1000 ml (SONIA,ALAN K DO) Vital Signs/I&O Capillary Refill : (JULES VIGIL) Blood Pressure Mean: 95 Progress Note #1: Time: 18:18 Progress Note Patient is on borderline O2 so we will check an ABG chest x-ray EKG Covid labs give her a liter of fluids. If all she needs a little oxygen we can send her home. If she does not need oxygen we can send her home and set her up for monoclonal antibody infusion. Tylenol Toradol aspirin for her headache and fever. ABGs on room air and definitely supports her hypoxia with her PaO2 of 57 and her respiratory alkalosis. Progress Note #2: Time: 20:14 Progress Note Patient is requiring some oxygen based on ABG and is more comfortable with it. After some fluids if she is feeling better we will let her go home on oxygen or she may need observed for more hydration and oxygen related to Covid. The Covid swab is still pending. The nurse called the lab and they said they are working on it. (JULES VIGIL) Progress Note : Progress Note ASSUMED CARE FROM DR. VIGIL AT SHIFT CHANGE. PT IS STILL REQUIRING O2 AT 2L/NC TO MAINTAIN O2 SATS > 94%. SATS DROP INTO 80'S WITH AMBULATION TO BATHROOM CONTINUES TO FEEL VERY WEAK AND DOES NOT FEEL COMFORTABLE GOING HOME (ALAN FRANCIS DO) ECG Initial ECG Impression Date: Feb 13, 2021 Initial ECG Impression Time: 17:42 Initial ECG Rate: 102 Initial ECG Rhythm: S.Tach Initial ECG Intervals: Normal Initial ECG Impression: Normal Comment Sinus tachycardia without clinically relevant ST elevation or depression. (JULES VIGIL) Diagnostic Imaging Diagonstic Imaging: Xray Plain Films/CT/US/NM/MRI: chest Comments [facility]. [place], [place] NAME: MORA SAMS [facility] REC#: [id number] PT STATUS: REG ER : 1965 PHYSICIAN: JULES VIGIL MD ADMIT DATE: 02/13/21/ER Signed Date of Exam:02/13/21 CHEST 1 VIEW, AP/PA ONLY EXAMINATION: Chest 1 view HISTORY: sepsis COMPARISON: 04/19/2018 FINDINGS: Heart size and pulmonary vasculature are normal. Mild interstitial opacities in the lung bases. No pleural effusion or pneumothorax. The osseous structures are intact. IMPRESSION: 1. Mild interstitial opacities in the lung bases which could represent atelectasis, pulmonary edema, or atypical infection. Dictated by: Dictated on workstation # [id number] Dict: 02/13/21 1821 Trans: 02/13/21 1837 [facility] [id number] Interpreted by: MARSHA MCCARTHY DO Electronically signed by: MARSHA MCCARTHY DO 02/13/[id number] Reviewed: Reviewed by Me (JULES VIGIL) Transfer of Care Transfer of Care Time: 20:14 Care transferred to: Dr. Francis (JULES VIGIL) Departure Communication (Admissions) 2034--ATTEMPTING TO CONTACT DR. Tammy LANDIN, MESSAGE LEFT ON CELL PHONE 2039--SPOKE WITH DR. LANDIN, ACCEPTS PT FOR ADMIT. ADVISES REMDESIVIR, DECADRON AND ZITHROMAX (ALAN FRANCIS DO) Impression Primary Impression: Pneumonia due to COVID-19 virus Additional Impression: Acute respiratory failure with hypoxia Disposition: ADMITTED INPATIENT Condition: Stable Admissions Decision to Admit Reason: Admit from ER (General) Decision to Admit/Date: Feb 13, 2021 Time/Decision to Admit Time: 20:40 (ALAN FRANCIS DO) Departure-Patient Inst. Referrals: ROSALBA PARRY MD (PCP/Family) Primary Care Physician JULES VIGIL Feb 13, 2021 18:18 ALAN FRANCIS DO Feb 14, 2021 05:49
--- NOTE | 2021-02-13 18:26 | Diagnostic Imaging Report ---
EXAMINATION: Chest 1 view HISTORY: sepsis COMPARISON: 04/19/2018 FINDINGS: Heart size and pulmonary vasculature are normal. Mild interstitial opacities in the lung bases. No pleural effusion or pneumothorax. The osseous structures are intact. IMPRESSION: 1. Mild interstitial opacities in the lung bases which could represent atelectasis, pulmonary edema, or atypical infection. Dictated by: Dictated on workstation # [id number]
[2021-02-13] MEDS ORDERED: D5 1/2 NS W/KCL 20 MEQ/L 1,000 ML IV ONE (23:13)
[2021-02-13] MEDS ORDERED: IBUPROFEN 800 MG (MOTRIN) TAB PO PRN (23:30)
[2021-02-13 23:33] VITALS: BP 120/64
[2021-02-13] MEDS: D5 1/2 NS W/KCL 20 MEQ/L 1,000 ML IV SCH (23:38)
[2021-02-13] MEDS: AZITHROMYCIN 500 MG/NS 250 ML IVPB IV SCH ×2 (23:47)
[2021-02-14] VITALS (8 sets, daily range): BP systolic 100–126; BP diastolic 55–79
[2021-02-14] MEDS: ONDANSETRON 4 MG/2 ML (SDV) Z0FRAN IV PRN ×2 (00:22→20:46)
[2021-02-14] MEDS: BENZONATATE 100 MG (TESSALON) CAPSULE PO PRN ×3 (00:23→16:01)
[2021-02-14] MEDS: RT-ALBUTEROL INHALER HFA (VENTOLIN HFA) 18 GM IH SCH ×4 (02:09→20:40)
[2021-02-14] MEDS: D5 1/2 NS W/KCL 20 MEQ/L 1,000 ML IV SCH ×3 (06:17→20:42)
[2021-02-14 06:47] LABS: BASOPHILS % (AUTO) 0 % (0-10); EOSINOPHILS % (AUTO) 0 % (0-10); HEMATOCRIT 37 % (35-52); HEMOGLOBIN 11.9 g/dL (11.5-16.0); LYMPHOCYTES # (AUTO) 0.3 10^3/uL (1.0-4.0); LYMPHOCYTES % (AUTO) 5 % (12-44); MEAN CORPUSCULAR HEMOGLOBIN 30 pg (25-34); MEAN CORPUSCULAR HGB CONC 32 g/dL (32-36); MEAN CORPUSCULAR VOLUME 91 fL (80-99); MEAN PLATELET VOLUME 9.6 fL (9.0-12.2); MONOCYTES # (AUTO) 0.1 10^3/uL (0.0-1.0); MONOCYTES % (AUTO) 2 % (0-12); NEUTROPHILS % (AUTO) 93 % (42-75); PLATELET COUNT 184 10^3/uL (130-400); WHITE BLOOD COUNT 5.4 10^3/uL (4.3-11.0)
[2021-02-14 07:00] LABS: POTASSIUM 3.7 MMOL/L (3.6-5.0)
[2021-02-14 07:01] LABS: CALCIUM 8.9 MG/DL (8.5-10.1)
[2021-02-14] MEDS ORDERED: BUSP5TAB59 PO (07:04)
[2021-02-14 07:05] LABS: CREATININE SERUM 0.79 MG/DL (0.60-1.30)
[2021-02-14] MEDS ORDERED: REMDESIVIR 200 MG/NS 250 ML IVPB IV ONE ×2 (08:00)
[2021-02-14] MEDS: ENOXAPARIN 40 MG/0.4 ML (LOVENOX) SYR SC SCH (08:20)
--- NOTE | 2021-02-14 16:58 | History & Physical ---
History of Present Illness History of Present Illness Reason for visit/HPI 55 yo F admitted for acute resp failure due to COVID 19. She reports 2 weeks ago thought she had a sinus infection- PCP saw her via telemedicine visit and Rx azithromycin and steroids. That helped a little bit but the last 6 days she has felt really weak and laid in bed nearly all of 6 days. is ill too but not quite as bad- he called EMS yesterday and she was brought to the ER. She is requiring oxygen to keep her oxygen saturation up- 2L at rest but requirements go up if she moves around. This AM- patient reports she feels about 100% better. She is not vaccinated for COVID. Vapes some. Denies cigarettes. Etoh nightly. Date of Admission Feb 13, 2021 at 20:40 Date Seen by a Provider: Feb 14, 2021 Time Seen by a Provider: 14:00 I consulted on this patient on 02/14/21 16:51 Attending Physician Bella Kennedy MD Admitting Physician Bella Kennedy MD Consult Allergies and Home Medications Allergies Coded Allergies: Sulfa (Sulfonamide Antibiotics) (Unverified Allergy, Unknown, 04/05/18) Home Medications Atorvastatin Calcium 10 Mg Tablet, 10 MG PO HS, (Reported) Last Action: Reviewed Buspirone HCl 5 Mg Tablet, 5 MG PO DAILY, (Reported) Last Action: Reviewed Metoprolol Succinate 50 Mg Tab.er.24h, 50 MG PO HS, (Reported) Last Action: Reviewed Valacyclovir HCl 500 Mg Tablet, 500 MG PO HS, (Reported) Last Action: Reviewed Patient Home Medication List Home Medication List Reviewed: Yes Past Opchryq-Nmepmi-Vsnqly Hx Patient Social History Marrital Status: Tobacco Use?: No Smoking Status: Never a Smoker Smokeless Tobacco Frequency: Never a User Use of E-Cig and/or Vaping dev: Yes E-Cig or Vaping type used: Nicotine Use of E-Cig and/or Vaping Marquis: Light User Substance use?: No Alcohol Use?: Yes Alcohol type: Hard Liquor Additional alcohol type: CROWN AND WATER Alcohol Frequency: Once in a while Pt feels they are or have been: No Immunizations Up To Date Tetanus Booster (TDap): Less Than 5 Years Hepatitis A: No Hepatitis B: No Current Status status: No status: No Advance Directives: No Communicates: Verbally Primary Language: Macanese Preferred Spoken Language: Macanese Is interpretation needed?: No Implanted or Applied Medical D: None Review of Systems Review of Systems General: No Chills, No Night Sweats; Other (fever) HEENT: Head Aches Pulmonary: Dyspnea, Cough Cardiovascular: Chest Pain Gastrointestinal: No: Nausea, Vomiting, Abdominal Pain Genitourinary: No Dysuria Musculoskeletal: No: neck pain Neurological: Weakness All Other Systems Reviewed All Other Systems Reviewed: Yes Physical Exam Vital Signs Vital Signs - First Documented 02/15/21 10:05 FiO2 100 Vital Signs Date Time Temp Pulse Resp B/P (MAP) Pulse Ox O2 Delivery O2 Flow Rate FiO2 02/15/21 12:53 77 02/15/21 12:00 36.8 80 18 134/68 (90) 98 Vapotherm 30.00 80.00 02/15/21 10:05 99 Vapotherm 40.00 100 02/15/21 08:03 90 Nasal Cannula 5.00 02/15/21 08:00 37.0 74 20 119/57 (77) 91 High Flow N/C 5.00 02/15/21 08:00 91 High Flow N/C 5.00 02/15/21 07:00 65 02/15/21 03:48 36.6 73 18 110/58 (75) 97 High Flow N/C 6.00 02/15/21 02:00 91 Nasal Cannula 6.00 02/15/21 00:59 69 02/14/21 23:32 36.7 65 18 116/60 (78) 97 High Flow N/C 6.00 02/14/21 20:00 94 Nasal Cannula 2.00 02/14/21 19:08 37.1 80 20 100/59 (73) 97 Nasal Cannula 2.00 02/14/21 19:00 83 02/14/21 15:35 94 Nasal Cannula 1.00 02/14/21 15:31 97 Nasal Cannula 2.00 02/14/21 15:14 36.8 78 20 111/58 (75) 99 Nasal Cannula 2.00 I & O 02/15/21 07:00 Intake Total 2100 ml Balance 2100 ml Height, Weight, BMI Height: 5'8.00" Weight: 136lbs. 0.0oz. [id number]; 21.99 BMI Method: General Appearance: Mild Distress HEENT: PERRL/EOMI Neck: Non Tender, Supple Respiratory: Chest Non Tender, No Accessory Muscle Use, Respiratory Distress (with exertion), Rhonci Cardiovascular: Regular Rate, Rhythm Gastrointestinal: Non Tender, Soft Rectal: Deferred Back: Normal Inspection, No CVA Tenderness Extremity: Non Tender, No Calf Tenderness Neurologic/Psychiatric: Alert, Oriented x3, No Motor/Sensory Deficits, Normal Mood/Affect Skin: Warm/Dry Assessment/Plan Assessment/Plan Admission Dx acute hypoxic respiratory failure due to COVID Admission Status: Inpatient Order (span 2 midnights) Reason for Inpatient Admission: She will require 2 midnights due to acute hypoxic respiratory failure- she could decompensate quickly as she was worsening on admission. Assessment and Plan 55 yo F with COVID -continue dexamethasone, remdesivir, RT, albuterol -procalcitonin- does not indicate bacterial infection. -doing well on 2L oxygen -start metoprolol 25mg BID -turned IVF down to 75ml/hr. May d/c ivf tomorrow. Dispo: continue to monitor - lovenox for dvt ppx Problems: (1) Acute respiratory failure with hypoxia (2) Pneumonia due to COVID-19 virus (3) HTN (hypertension) (4) HLD (hyperlipidemia) NICKY LANDIN MD Feb 14, 2021 16:58
[2021-02-14] MEDS: ACETAMINOPHEN 500 MG TAB (TYLENOL) PO PRN (17:44)
[2021-02-14] MEDS: AZITHROMYCIN 500 MG/NS 250 ML IVPB IV SCH ×2 (20:36)
[2021-02-15] MEDS: RT-ALBUTEROL INHALER HFA (VENTOLIN HFA) 18 GM IH PRN ×2 (01:59→21:08)
[2021-02-15] MEDS: RT-ALBUTEROL INHALER HFA (VENTOLIN HFA) 18 GM IH SCH ×3 (02:00→21:14)
[2021-02-15 03:48] VITALS: BP 110/58
[2021-02-15] MEDS: BENZONATATE 100 MG (TESSALON) CAPSULE PO PRN (06:07)
[2021-02-15 08:00] VITALS: BP 119/57
[2021-02-15] MEDS: ENOXAPARIN 40 MG/0.4 ML (LOVENOX) SYR SC SCH (08:16)
[2021-02-15] MEDS: REMDESIVIR 100 MG/NS 250 ML IVPB IV SCH ×2 (08:16)
[2021-02-15] MEDS ORDERED: FUROSEMIDE 40 MG/4 ML INJ (LASIX) IVP ONE (10:00)
--- NOTE | 2021-02-15 10:02 | Progress Note ---
Subjective Subjective Date Seen by Provider: Feb 15, 2021 Time Seen by Provider: 11:10 Oxygen saturations down in low 90s this AM- switched to vapotherm. Patient feels more tired- tired after getting up to go to the restroom. She is hoping to go home tomorrow- I informed her this is not likely because she is requiring vapotherm. She is mouth breathing and when I remind her to breath through her nose- her oxygen sats come back up. Nursing notes this afternoon oxygen sats went into 70s with ambulation to urinate. Review of Systems General: No Chills, No Night Sweats; Other (fever) HEENT: Head Aches Pulmonary: Dyspnea, Cough Cardiovascular: Chest Pain Gastrointestinal: No: Nausea, Vomiting, Abdominal Pain Genitourinary: No Dysuria Musculoskeletal: No: neck pain Neurological: Weakness All Other Systems Reviewed All Other Systems Reviewed: Yes Objective Exam Vital Signs Vital Signs Date Time Temp Pulse Resp B/P (MAP) Pulse Ox O2 Delivery O2 Flow Rate FiO2 02/15/21 08:03 90 Nasal Cannula 5.00 02/15/21 08:00 91 High Flow N/C 5.00 02/15/21 07:00 65 02/15/21 03:48 36.6 73 18 110/58 (75) 97 High Flow N/C 6.00 02/15/21 02:00 91 Nasal Cannula 6.00 02/15/21 00:59 69 02/14/21 23:32 36.7 65 18 116/60 (78) 97 High Flow N/C 6.00 02/14/21 20:00 94 Nasal Cannula 2.00 02/14/21 19:08 37.1 80 20 100/59 (73) 97 Nasal Cannula 2.00 02/14/21 19:00 83 02/14/21 15:35 94 Nasal Cannula 1.00 02/14/21 15:31 97 Nasal Cannula 2.00 02/14/21 15:14 36.8 78 20 111/58 (75) 99 Nasal Cannula 2.00 02/14/21 12:56 36.8 86 20 103/55 (71) 97 Nasal Cannula 2.00 02/14/21 12:55 79 02/14/21 12:15 78 20 112/61 (78) 94 Nasal Cannula 3.00 02/14/21 11:49 Nasal Cannula 2.00 02/14/21 11:40 96 Nasal Cannula 3.00 I & O 02/15/21 06:59 Intake Total 2100 ml Balance 2100 ml General Appearance: Mild Distress Eyes: Bilateral Eye Normal Inspection, Bilateral Eye PERRL, Bilateral Eye EOMI HEENT: PERRL/EOMI Neck: Non Tender, Supple Respiratory: Chest Non Tender, No Accessory Muscle Use, Respiratory Distress, Rhonci Cardiovascular: Regular Rate, Rhythm Gastrointestinal: Non Tender, Soft Rectal: Deferred Back: Normal Inspection, No CVA Tenderness Extremity: Non Tender, No Calf Tenderness Neurologic/Psychiatric: Alert, Oriented x3, No Motor/Sensory Deficits, Normal Mood/Affect Skin: Warm/Dry Results Lab Microbiology 02/13/21 Blood Culture - Preliminary, Resulted No growth Assessment/Plan Assessment/Plan Admission Dx acute hypoxic respiratory failure due to COVID Assessment and Plan 55 yo F with COVID 02/14/21 -continue dexamethasone, remdesivir, RT, albuterol -procalcitonin- does not indicate bacterial infection. -doing well on 2L oxygen -start metoprolol 25mg BID -turned IVF down to 75ml/hr. May d/c ivf tomorrow. 02/15/21- increased oxygen needs to vapotherm; stopped IVF. will give 40mg las ix iv x1. Pt is more anxious- added xanax. May put a bernardo in if she keeps desating when walking to the restroom. Dispo: continue to monitor - lovenox for dvt ppx Problems: (1) Acute respiratory failure with hypoxia (2) Pneumonia due to COVID-19 virus Assessment & Plan: unvaccinated vapes nightly etoh use (3) HTN (hypertension) (4) HLD (hyperlipidemia) Admission Dx acute hypoxic respiratory failure due to COVID Clinical Quality Measures Admission Status Admission Dx acute hypoxic respiratory failure due to COVID NICKY LANDIN MD Feb 15, 2021 10:02
[2021-02-15] MEDS: DOCUSATE SODIUM 100 MG (COLACE) CAP PO SCH ×2 (10:42→21:41)
[2021-02-15] MEDS: guaiFENesin (MUCINEX) 600 MG TAB PO SCH ×2 (10:42→21:41)
[2021-02-15 10:55] LABS: BASOPHILS % (AUTO) 0 % (0-10); EOSINOPHILS % (AUTO) 0 % (0-10); HEMATOCRIT 39 % (35-52); HEMOGLOBIN 12.5 g/dL (11.5-16.0); LYMPHOCYTES # (AUTO) 0.4 10^3/uL (1.0-4.0); LYMPHOCYTES % (AUTO) 3 % (12-44); MEAN CORPUSCULAR HEMOGLOBIN 29 pg (25-34); MEAN CORPUSCULAR HGB CONC 32 g/dL (32-36); MEAN CORPUSCULAR VOLUME 91 fL (80-99); MEAN PLATELET VOLUME 9.8 fL (9.0-12.2); MONOCYTES # (AUTO) 0.5 10^3/uL (0.0-1.0); MONOCYTES % (AUTO) 4 % (0-12); NEUTROPHILS # (AUTO) 12.6 10^3/uL (1.8-7.8); NEUTROPHILS % (AUTO) 92 % (42-75); PLATELET COUNT 254 10^3/uL (130-400); WHITE BLOOD COUNT 13.8 10^3/uL (4.3-11.0)
[2021-02-15 11:09] LABS: POTASSIUM 3.8 MMOL/L (3.6-5.0)
[2021-02-15 11:10] LABS: CALCIUM 9.4 MG/DL (8.5-10.1)
[2021-02-15 11:15] LABS: CREATININE SERUM 0.82 MG/DL (0.60-1.30); PHOSPHORUS 3.2 MG/DL (2.3-4.7)
[2021-02-15 12:00] VITALS: BP 134/68
[2021-02-15 12:25] LABS: LYMPHOCYTES % (MANUAL) 2 %; MONOCYTES % (MANUAL) 4 %; NEUTROPHILS % (MANUAL) 94 %; RBC MORPH NORMAL
[2021-02-15] MEDS: ACETAMINOPHEN 500 MG TAB (TYLENOL) PO PRN ×2 (13:28→23:58)
[2021-02-15] MEDS ORDERED: ALPRAZolam 0.5 MG (XANAX) TAB PO PRN (13:45)
[2021-02-15 15:50] VITALS: BP 109/55
[2021-02-15 20:01] VITALS: BP 125/67
[2021-02-15] MEDS: AZITHROMYCIN 500 MG/NS 250 ML IVPB IV SCH ×2 (21:42)
[2021-02-15] MEDS: polyethylene glycoL POWDER 17 GM (MIRALAX) PACK PO SCH (21:42)
[2021-02-15 23:50] VITALS: BP 129/77
[2021-02-16] MEDS: RT-ALBUTEROL INHALER HFA (VENTOLIN HFA) 18 GM IH SCH ×4 (02:27→23:33)
[2021-02-16 03:31] VITALS: BP 114/72
[2021-02-16 06:58] LABS: BASOPHILS % (AUTO) 0 % (0-10); EOSINOPHILS % (AUTO) 0 % (0-10); HEMATOCRIT 36 % (35-52); HEMOGLOBIN 11.5 g/dL (11.5-16.0); LYMPHOCYTES # (AUTO) 0.4 10^3/uL (1.0-4.0); LYMPHOCYTES % (AUTO) 4 % (12-44); MEAN CORPUSCULAR HEMOGLOBIN 29 pg (25-34); MEAN CORPUSCULAR HGB CONC 32 g/dL (32-36); MEAN CORPUSCULAR VOLUME 91 fL (80-99); MEAN PLATELET VOLUME 9.7 fL (9.0-12.2); MONOCYTES # (AUTO) 0.3 10^3/uL (0.0-1.0); MONOCYTES % (AUTO) 3 % (0-12); NEUTROPHILS # (AUTO) 9.5 10^3/uL (1.8-7.8); NEUTROPHILS % (AUTO) 90 % (42-75); PLATELET COUNT 264 10^3/uL (130-400); WHITE BLOOD COUNT 10.5 10^3/uL (4.3-11.0)
[2021-02-16] MEDS: guaiFENesin (MUCINEX) 600 MG TAB PO SCH ×2 (08:11→22:08)
[2021-02-16] MEDS: DOCUSATE SODIUM 100 MG (COLACE) CAP PO SCH ×2 (08:11→23:26)
[2021-02-16] MEDS: ENOXAPARIN 40 MG/0.4 ML (LOVENOX) SYR SC SCH (08:11)
[2021-02-16 08:13] VITALS: BP 113/60
--- NOTE | 2021-02-16 08:49 | Progress Note ---
Subjective Subjective Date Seen by Provider: Feb 16, 2021 Time Seen by Provider: 09:00 PT IS A 55 Y/O FEMALE WHO HAS DX OF COVID-19 AND WAS ADMITTED FOR RESPIRATORY FAILURE ATTRIBUTED TO THE INFECTION. PT REPORTS THAT SHE IS SHORT OF BREATH WITH ANY ACTIVITY. SHE DENIES ABDOMINAL PAIN, NAUSEA DIZZINESS, EXCESSIVE SPUTUM PRODUCTION. Review of Systems General: No Chills, No Night Sweats; Fatigue, Malaise HEENT: Head Aches Pulmonary: Dyspnea, Cough Cardiovascular: Chest Pain Gastrointestinal: No: Nausea, Vomiting, Abdominal Pain Genitourinary: No Dysuria Musculoskeletal: No: neck pain Neurological: Weakness; No: Confusion All Other Systems Reviewed All Other Systems Reviewed: Yes Objective Exam Vital Signs Vital Signs Date Time Temp Pulse Resp B/P (MAP) Pulse Ox O2 Delivery O2 Flow Rate FiO2 02/16/21 08:13 77 18 113/60 (77) 90 High Flow N/C 5.00 02/16/21 07:31 98 Vapotherm 20.00 45 02/16/21 07:00 68 02/16/21 03:31 36.4 74 18 114/72 (86) 96 Vapotherm 20.00 40.00 02/16/21 02:27 92 Vapotherm 40.00 50 02/16/21 01:00 79 02/15/21 23:50 37.3 77 18 129/77 (94) 99 Vapotherm 25.00 55.00 02/15/21 21:08 98 Vapotherm 40.00 50 02/15/21 20:01 36.4 78 18 125/67 (86) 98 Vapotherm 25.00 50.00 02/15/21 20:00 9 Vapotherm 25.00 50 02/15/21 19:00 72 02/15/21 15:50 36.4 86 20 109/55 (73) 99 Vapotherm 25.00 50.00 02/15/21 12:53 77 02/15/21 12:00 36.8 80 18 134/68 (90) 98 Vapotherm 30.00 80.00 02/15/21 10:05 99 Vapotherm 40.00 100 I & O 02/16/21 07:00 Intake Total 2400 ml Output Total 1700 ml Balance 700 ml General Appearance: No Apparent Distress, WD/WN Eyes: Bilateral Eye Normal Inspection, Bilateral Eye PERRL, Bilateral Eye EOMI HEENT: PERRL/EOMI Neck: Non Tender, Supple Respiratory: Chest Non Tender, No Accessory Muscle Use, No Respiratory Distress, Decreased Breath Sounds, Rhonci Cardiovascular: Regular Rate, Rhythm Gastrointestinal: Non Tender, Soft Rectal: Deferred Back: Normal Inspection, No CVA Tenderness Extremity: Non Tender, No Calf Tenderness Neurologic/Psychiatric: Alert, Oriented x3, No Motor/Sensory Deficits, Normal Mood/Affect Skin: Warm/Dry Results Lab Laboratory Tests 02/15/21 10:40: White Blood Count 13.8H, Red Blood Count 4.25, Hemoglobin 12.5, Hematocrit 39, Mean Corpuscular Volume 91, Mean Corpuscular Hemoglobin 29, Mean Corpuscular Hemoglobin Concent 32, Red Cell Distribution Width 12.7, Platelet Count 254, Mean Platelet Volume 9.8, Immature Granulocyte % (Auto) 2, Neutrophils (%) (Auto) 92H, Lymphocytes (%) (Auto) 3L, Monocytes (%) (Auto) 4, Eosinophils (%) (Auto) 0, Basophils (%) (Auto) 0, Neutrophils # (Auto) 12.6H, Lymphocytes # (Auto) 0.4L, Monocytes # (Auto) 0.5, Eosinophils # (Auto) 0.0, Basophils # (Auto) 0.0, Immature Granulocyte # (Auto) 0.2H, Neutrophils % (Manual) 94, Lymphocytes % (Manual) 2, Monocytes % (Manual) 4, Blood Morphology Comment NORMAL, Sodium Level 144, Potassium Level 3.8, Chloride Level 103, Carbon Dioxide Level 25, Anion Gap 16H, Blood Urea Nitrogen 7, Creatinine 0.82, Estimat Glomerular Filtration Rate 72, BUN/Creatinine Ratio 9, Glucose Level 133H, Calcium Level 9.4, Phosphorus Level 3.2, Albumin 4.0 02/15/21 20:37: Glucometer 101 02/16/21 06:13: White Blood Count 10.5, Red Blood Count 3.93, Hemoglobin 11.5, Hematocrit 36, Mean Corpuscular Volume 91, Mean Corpuscular Hemoglobin 29, Mean Corpuscular Hemoglobin Concent 32, Red Cell Distribution Width 12.5, Platelet Count 264, Mean Platelet Volume 9.7, Immature Granulocyte % (Auto) 2, Neutrophils (%) (Auto) 90H, Lymphocytes (%) (Auto) 4L, Monocytes (%) (Auto) 3, Eosinophils (%) (Auto) 0, Basophils (%) (Auto) 0, Neutrophils # (Auto) 9.5H, Lymphocytes # (Auto) 0.4L, Monocytes # (Auto) 0.3, Eosinophils # (Auto) 0.0, Basophils # (Auto) 0.0, Immature Granulocyte # (Auto) 0.3H Microbiology 02/13/21 Blood Culture - Preliminary, Resulted No growth Assessment/Plan Assessment/Plan Admission Dx COVID-19 INFECTION ACUTE RESPIRATORY FAILURE WITH HYPOXIA PNEUMONIA HYPERTENSION WEAKNESS Assessment and Plan COVID-19 INFECTION ACUTE RESPIRATORY FAILURE WITH HYPOXIA PNEUMONIA HYPERTENSION WEAKNESS COVID-19 INFECTION WITH ACUTE RESPIRATORY FAILURE WITH HYPOXIA - PT ON REMDESIVIR, ANTIBIOTICS, STEROIDS, BREATHING TREATMENTS. - OXYGEN HAS BEEN WEANED DOWN FROM VAPOTHERM TO HIGH FLOW NC, SHE WILL NEED TO BE EVALUATED FOR OXYGEN PRIOR TO DISCHARGE TO DETERMINE EXTENT OF NEED. PNEUMONIA - SUPPORTIVE CARE, IV ANTIBIOTICS HYPERTENSION - HOME MEDICATION REGIMEN DECREASED FROM 25MGam AND 50MG hs OF METOPROLOL TO 25MG BID. WEAKNESS - WILL NEED THERAPY ON DC. ROSALBA PARRY MD Feb 16, 2021 08:49
[2021-02-16] MEDS: REMDESIVIR 100 MG/NS 250 ML IVPB IV SCH ×2 (10:10)
[2021-02-16] MEDS ORDERED: MULT-1060 PO (11:59)
[2021-02-16] MEDS ORDERED: PROM473S9 PO (11:59)
[2021-02-16] MEDS ORDERED: RT-ALBUINH INH (11:59)
[2021-02-16] MEDS ORDERED: MTP25TSR PO (11:59)
[2021-02-16] MEDS ORDERED: BUSP5TAB59 PO (11:59)
[2021-02-16] MEDS ORDERED: LACT1CAP72 PO (11:59)
[2021-02-16] MEDS ORDERED: TRIA10.8 NSEACH (11:59)
[2021-02-16] MEDS ORDERED: ELDE1CAP PO (11:59)
[2021-02-16] MEDS ORDERED: MINO100C5 PO (11:59)
[2021-02-16] MEDS ORDERED: METO50TA7 PO (11:59)
[2021-02-16 12:00] VITALS: BP 124/58
[2021-02-16] MEDS: ACETAMINOPHEN 500 MG TAB (TYLENOL) PO PRN ×2 (15:20→23:28)
[2021-02-16] MEDS: ONDANSETRON 4 MG/2 ML (SDV) Z0FRAN IV PRN ×2 (15:21→22:08)
[2021-02-16 16:00] VITALS: BP 113/55
[2021-02-16 19:27] VITALS: BP 116/65
[2021-02-16] MEDS: AZITHROMYCIN 500 MG/NS 250 ML IVPB IV SCH ×2 (22:07)
[2021-02-16] MEDS: polyethylene glycoL POWDER 17 GM (MIRALAX) PACK PO SCH (23:26)
[2021-02-16 23:27] VITALS: BP 126/73
[2021-02-17] MEDS: RT-ALBUTEROL INHALER HFA (VENTOLIN HFA) 18 GM IH SCH ×3 (03:23→15:11)
[2021-02-17 04:55] VITALS: BP 135/65
[2021-02-17 07:19] VITALS: BP 133/73
[2021-02-17] MEDS: REMDESIVIR 100 MG/NS 250 ML IVPB IV SCH ×2 (08:49)
[2021-02-17] MEDS: ENOXAPARIN 40 MG/0.4 ML (LOVENOX) SYR SC SCH (08:50)
[2021-02-17] MEDS: DOCUSATE SODIUM 100 MG (COLACE) CAP PO SCH ×3 (08:50→19:48)
[2021-02-17] MEDS: guaiFENesin (MUCINEX) 600 MG TAB PO SCH ×2 (08:50→20:26)
--- NOTE | 2021-02-17 11:09 | Discharge Summary ---
Diagnosis/Chief Complaint Date of Admission Feb 13, 2021 at 20:40 Date of Discharge Discharge Date: Feb 20, 2021 Discharge Time: 13:30 Admission Diagnosis Admission Diagnosis COVID-19 INFECTION ACUTE RESPIRATORY FAILURE WITH HYPOXIA PNEUMONIA HYPERTENSION WEAKNESS Discharge Diagnosis COVID-19 INFECTION ACUTE RESPIRATORY FAILURE WITH HYPOXIA PNEUMONIA HYPERTENSION WEAKNESS Reason Hospital Visit 55 yo F admitted for acute resp failure due to COVID 19. She reports 2 weeks ago thought she had a sinus infection- PCP saw her via telemedicine visit and Rx azithromycin and steroids. That helped a little bit but the last 6 days she has felt really weak and laid in bed nearly all of 6 days. is ill too but not quite as bad- he called EMS yesterday and she was brought to the ER. Discharge Summary Discharge Physical Examination Allergies: Coded Allergies: Sulfa (Sulfonamide Antibiotics) (Unverified Allergy, Unknown, 04/05/18) Vitals & I&Os Vital Signs Date Time Temp Pulse Resp B/P (MAP) Pulse Ox O2 Delivery O2 Flow Rate FiO2 02/20/21 11:30 36.4 80 20 101/56 (71) 94 High Flow N/C 4.50 02/16/21 07:31 45 General Appearance: Alert, Oriented X3, Cooperative, Mild Distress HEENT: Atraumatic, PERRLA Respiratory: Other (FAINT CRACKLES OF BASES) Cardiovascular: Regular Rate Abdominal: Normal Bowel Sounds, Soft, No Tenderness Extremities: No Clubbing, No Cyanosis, No Edema, Normal Pulses Skin: No Rashes, No Breakdown Neuro: Normal Speech, Cranial Nerves 3-12 NL Psych/Mental Status: Mental Status NL, Mood NL Hospital Course COVID-19 INFECTION ACUTE RESPIRATORY FAILURE WITH HYPOXIA PNEUMONIA HYPERTENSION WEAKNESS COVID-19 INFECTION WITH ACUTE RESPIRATORY FAILURE WITH HYPOXIA - PT ON REMDESIVIR, ANTIBIOTICS, STEROIDS, BREATHING TREATMENTS. - OXYGEN HAS BEEN WEANED DOWN FROM VAPOTHERM TO HIGH FLOW NC, SHE WILL NEED TO BE EVALUATED FOR OXYGEN PRIOR TO DISCHARGE TO DETERMINE EXTENT OF NEED. - oxygen requirement of 5 - 6 liters with ambulation and at rest up to 3 liters when not talking and 5 liters with any conversational exertion. PNEUMONIA - SUPPORTIVE CARE, IV ANTIBIOTICS - transitioned to oral azithromycin and cefdinir on dc. HYPERTENSION - HOME MEDICATION REGIMEN DECREASED FROM 25MGam AND 50MG hs OF METOPROLOL TO 25MG BID. WEAKNESS - WILL NEED THERAPY ON DC. pt dc'd with home health, therapy and nursing , check cbc and cmp in one week from dc and bedside commode to decrease her exertion from bed to bathroom since she has a greater than 20 foot walk to the restroom. rtc in one week Discharge Condition at discharge improving Instructions to patient/family Please see electronic discharge instructions given to patient. Discharge Medications Reviewed and agree with Discharge Medication list on patient's Discharge Instruction sheet ROSALBA PARRY MD Feb 17, 2021 11:09
[2021-02-17 11:10] VITALS: BP 131/78
[2021-02-17] MEDS ORDERED: AZIT250T12 PO (11:16)
[2021-02-17] MEDS ORDERED: ALBU18HF2 IH (11:16)
[2021-02-17] MEDS ORDERED: DEXA2TAB PO (11:16)
[2021-02-17] MEDS ORDERED: MTP25TSR PO (11:16)
[2021-02-17] MEDS ORDERED: GUAI600T43 PO (11:16)
--- NOTE | 2021-02-17 11:19 | Discharge Inst-Simple/Standard ---
Discharge Inst-Standard Reconcile Patient Problems Problems Reviewed?: Yes Discharge Medications New, Converted or Re-Newed RX: Transmitted to Pharmacy Patient Instructions/Follow Up Plan of Care/Instructions/FU: 1 wk follow up with zoraida rios Activity as Tolerated: No (stay home bound for another 7 days post discharge, then may be more liberal with activity) Discharge Diet: Regular Diet Return to The Hospital For: any concern for shortness of breath, or other life threatening illness or injury Medication List: Active Scripts Active Azithromycin 250 Mg Tablet 250 Mg PO UD TAKE 2 TABLETS ON DAY ONE THEN TAKE 1 TABLET DAILY FOR FOUR MORE DAYS Mucinex (Guaifenesin) 600 Mg Tab.er.12h 600 Mg PO BID Dexamethasone 2 Mg Tablet 2 Mg PO DAILY Metoprolol Succinate 25 Mg Tab.er.24h 25 Mg PO BID Ventolin Hfa (Albuterol Sulfate) 18 Gm Hfa.aer.ad 0 Gm IH RTQ2H PRN 2-4 puffs q2hr prn shortness of breath aspirin 325mg by mouth daily x 2 wks then decrease to 81mg daily thereafter Reported Probiotic (Lactobacillus Combo No.10) 1 Each Capsule 1 Each PO DAILY Black Elderberry 575 mg Cap (Elderberry Fruit and Flower) 1 Each Capsule 1 Each PO DAILY Centrum Women Tablet (Multivitamin/Iron/Folic Acid) 1 Each Tablet 1 Each PO DAILY Nasacort (Triamcinolone Acetonide) 10.8 Ml [place] 1-2 Sprays NSEACH DAILY Metoprolol Succinate 50 Mg Tab.er.24h 50 Mg PO HS Metoprolol Succinate 25 Mg Tab.er.24h 25 Mg PO DAILY Minocycline HCl 100 Mg Capsule 100 Mcg PO HS Buspirone HCl 5 Mg Tablet 5 Mg PO BID Proventil Hfa (Albuterol Sulfate) 6.7 Gm Hfa.aer.ad 1-2 Puff INH Q6H PRN Promethazine-Codeine Solution (Promethazine HCl/Codeine) 473 Ml Syrup 5-10 Ml PO Q6H PRN My orders: Orders - ROSALBA PARRY MD (02/16/21 15:00) Ambulate W/O 02-Home O2 Qual (02/17/21 10:30) Pending Discharge Order (02/17/21 11:09) ROSALBA PARRY MD Feb 17, 2021 11:19
--- NOTE | 2021-02-17 13:40 | Progress Note ---
Subjective Subjective Date Seen by Provider: Feb 17, 2021 Time Seen by Provider: 09:30 PT IS A 55 Y/O FEMALE WHO HAS DX OF COVID-19 AND WAS ADMITTED FOR RESPIRATORY FAILURE ATTRIBUTED TO THE INFECTION. PT REPORTS THAT SHE IS SHORT OF BREATH WITH ANY ACTIVITY, SHE REPORTS THAT GETTING FROM THE BED TO THE COMMODE TWO STEPS FROM THE BED IS EXHAUSTING TO HER. Review of Systems General: No Chills, No Night Sweats; Fatigue, Malaise HEENT: Head Aches Pulmonary: Dyspnea, Cough Cardiovascular: Chest Pain Gastrointestinal: No: Nausea, Vomiting, Abdominal Pain Genitourinary: No Dysuria Musculoskeletal: No: neck pain Neurological: Weakness; No: Confusion All Other Systems Reviewed All Other Systems Reviewed: Yes Objective Exam Vital Signs Vital Signs Date Time Temp Pulse Resp B/P (MAP) Pulse Ox O2 Delivery O2 Flow Rate FiO2 02/17/21 11:57 77 83 0.00 02/17/21 11:10 36.2 69 20 131/78 (95) 97 High Flow N/C 3.00 02/17/21 09:51 93 High Flow N/C 3.00 02/17/21 09:12 96 High Flow N/C 3.00 02/17/21 07:19 36.4 61 20 133/73 (93) 93 High Flow N/C 5.00 02/17/21 07:00 54 02/17/21 04:55 36.0 56 16 135/65 (88) 95 High Flow N/C 5.00 02/17/21 03:23 99 High Flow N/C 5.00 02/17/21 01:00 53 02/16/21 23:27 36.5 68 16 126/73 (90) 96 High Flow N/C 5.00 02/16/21 22:05 High Flow N/C 5.00 02/16/21 19:27 36.4 69 16 116/65 (82) 99 High Flow N/C 5.00 02/16/21 19:00 64 02/16/21 16:00 36.6 77 18 113/55 (74) 99 High Flow N/C 6.00 I & O 02/17/21 07:00 Intake Total 2410 ml Balance 2410 ml General Appearance: No Apparent Distress, WD/WN Eyes: Bilateral Eye Normal Inspection, Bilateral Eye PERRL, Bilateral Eye EOMI HEENT: PERRL/EOMI Neck: Non Tender, Supple Respiratory: Chest Non Tender, No Accessory Muscle Use, No Respiratory Distress, Decreased Breath Sounds, Rhonci Cardiovascular: Regular Rate, Rhythm Gastrointestinal: Non Tender, Soft Rectal: Deferred Back: Normal Inspection, No CVA Tenderness Extremity: Non Tender, No Calf Tenderness Neurologic/Psychiatric: Alert, Oriented x3, No Motor/Sensory Deficits, Normal Mood/Affect Skin: Warm/Dry Results Lab Microbiology 02/13/21 Blood Culture - Preliminary, Resulted No growth Assessment/Plan Assessment/Plan Admission Dx COVID-19 INFECTION ACUTE RESPIRATORY FAILURE WITH HYPOXIA PNEUMONIA HYPERTENSION WEAKNESS Assessment and Plan COVID-19 INFECTION ACUTE RESPIRATORY FAILURE WITH HYPOXIA PNEUMONIA HYPERTENSION WEAKNESS COVID-19 INFECTION WITH ACUTE RESPIRATORY FAILURE WITH HYPOXIA - PT ON REMDESIVIR, ANTIBIOTICS, STEROIDS, BREATHING TREATMENTS. - OXYGEN HAS BEEN WEANED DOWN FROM VAPOTHERM TO HIGH FLOW NC, SHE WILL NEED TO BE EVALUATED FOR OXYGEN PRIOR TO DISCHARGE TO DETERMINE EXTENT OF NEED. - SHE REQUIRED 15 LITERS OXYGEN NC WHEN ACTIVE TO KEEP OXYGEN ABOVE 90% - CANNOT GO HOME WITH SUCH A HIGH OXYGEN REQUIREMENT. PNEUMONIA - SUPPORTIVE CARE, IV ANTIBIOTICS HYPERTENSION - HOME MEDICATION REGIMEN DECREASED FROM 25MGam AND 50MG hs OF METOPROLOL TO 25MG BID. WEAKNESS - WILL NEED THERAPY ON DC. Admission Dx COVID-19 INFECTION ACUTE RESPIRATORY FAILURE WITH HYPOXIA PNEUMONIA HYPERTENSION WEAKNESS Clinical Quality Measures Admission Status Admission Dx COVID-19 INFECTION ACUTE RESPIRATORY FAILURE WITH HYPOXIA PNEUMONIA HYPERTENSION WEAKNESS ROSALBA PARRY MD Feb 17, 2021 13:40
[2021-02-17 15:50] VITALS: BP 123/72
--- NOTE | 2021-02-17 16:20 | Diagnostic Imaging Report ---
INDICATION: Covid 19 pneumonia. TIME OF EXAM: 4:06 PM CORRELATION is made with prior chest from 02/13/2021. The heart size is stable. There continues to be some patchy infiltrates in the mid and lower lung dewey bilaterally, similar to prior exam. Upper lung dewey appear clear. There is no effusion. There is no pneumothorax. IMPRESSION: Continued bilateral pulmonary infiltrates. Dictated by: Dictated on workstation # [id number]
[2021-02-17 19:24] VITALS: BP 122/70
[2021-02-17] MEDS: polyethylene glycoL POWDER 17 GM (MIRALAX) PACK PO SCH (19:48)
[2021-02-17] MEDS: AZITHROMYCIN 500 MG/NS 250 ML IVPB IV SCH ×2 (20:26)
[2021-02-17] MEDS: ONDANSETRON 4 MG/2 ML (SDV) Z0FRAN IV PRN (20:31)
[2021-02-17 22:00] VITALS: BP 122/70
[2021-02-18 00:01] VITALS: BP 127/74
[2021-02-18 05:08] VITALS: BP 121/70
[2021-02-18 06:43] LABS: HEMATOCRIT 37 % (35-52); HEMOGLOBIN 12.1 g/dL (11.5-16.0); MEAN CORPUSCULAR HEMOGLOBIN 29 pg (25-34); MEAN CORPUSCULAR HGB CONC 32 g/dL (32-36); MEAN CORPUSCULAR VOLUME 90 fL (80-99); PLATELET COUNT 313 10^3/uL (130-400)
[2021-02-18 06:59] LABS: ALBUMIN 3.5 GM/DL (3.2-4.5); POTASSIUM 4.2 MMOL/L (3.6-5.0)
[2021-02-18 07:01] LABS: TOTAL PROTEIN 6.6 GM/DL (6.4-8.2)
[2021-02-18 07:03] LABS: BILIRUBIN,TOTAL 0.4 MG/DL (0.1-1.0)
[2021-02-18 07:05] LABS: CREATININE SERUM 0.75 MG/DL (0.60-1.30)
[2021-02-18] MEDS: RT-ALBUTEROL INHALER HFA (VENTOLIN HFA) 18 GM IH SCH ×2 (07:45→20:43)
[2021-02-18] MEDS: RT-ALBUTEROL INHALER HFA (VENTOLIN HFA) 18 GM IH PRN (07:49)
[2021-02-18 08:00] VITALS: BP 105/57
[2021-02-18] MEDS: guaiFENesin (MUCINEX) 600 MG TAB PO SCH ×2 (08:21→20:41)
[2021-02-18] MEDS: ENOXAPARIN 40 MG/0.4 ML (LOVENOX) SYR SC SCH (08:21)
[2021-02-18] MEDS: REMDESIVIR 100 MG/NS 250 ML IVPB IV SCH ×2 (08:21)
[2021-02-18] MEDS: DOCUSATE SODIUM 100 MG (COLACE) CAP PO SCH ×2 (08:21→20:45)
[2021-02-18 12:00] VITALS: BP 99/56
--- NOTE | 2021-02-18 12:43 | Progress Note ---
Subjective Subjective Date Seen by Provider: Feb 18, 2021 Time Seen by Provider: 12:43 PT IS A 55 Y/O FEMALE WHO HAS DX OF COVID-19 AND WAS ADMITTED FOR RESPIRATORY FAILURE ATTRIBUTED TO THE INFECTION. PT REPORTS THAT SHE IS SHORT OF BREATH WITH ANY ACTIVITY, SHE REPORTS THAT GETTING FROM THE BED TO THE COMMODE TWO STEPS FROM THE BED IS EXHAUSTING TO HER. Review of Systems General: No Chills, No Night Sweats; Fatigue, Malaise HEENT: Head Aches Pulmonary: Dyspnea, Cough Cardiovascular: Chest Pain Gastrointestinal: No: Nausea, Vomiting, Abdominal Pain Genitourinary: No Dysuria Musculoskeletal: No: neck pain Neurological: Weakness; No: Confusion All Other Systems Reviewed All Other Systems Reviewed: Yes Objective Exam Vital Signs Vital Signs Date Time Temp Pulse Resp B/P (MAP) Pulse Ox O2 Delivery O2 Flow Rate FiO2 02/18/21 08:00 36.0 82 24 105/57 (73) 90 High Flow N/C 7.00 02/18/21 08:00 90 High Flow N/C 7.00 02/18/21 07:45 90 High Flow N/C 5.00 02/18/21 05:08 36.4 55 16 121/70 (87) 93 High Flow N/C 4.00 02/18/21 04:00 High Flow N/C 4.00 02/18/21 01:00 59 02/18/21 00:01 37.0 56 16 127/74 (91) 97 High Flow N/C 4.00 02/17/21 22:00 36.4 62 98 02/17/21 20:00 97 High Flow N/C 4.00 02/17/21 19:24 36.4 62 16 122/70 (87) 98 High Flow N/C 5.00 02/17/21 19:00 55 02/17/21 19:00 53 02/17/21 15:50 36.0 63 18 123/72 (89) 100 High Flow N/C 6.00 02/17/21 15:11 97 High Flow N/C 6.00 02/17/21 13:00 56 I & O 02/18/21 07:00 Intake Total 2040 ml Balance 2040 ml General Appearance: No Apparent Distress, WD/WN Eyes: Bilateral Eye Normal Inspection, Bilateral Eye PERRL, Bilateral Eye EOMI HEENT: PERRL/EOMI Neck: Non Tender, Supple Respiratory: Chest Non Tender, No Accessory Muscle Use, No Respiratory Distress, Decreased Breath Sounds, Rhonci Cardiovascular: Regular Rate, Rhythm Gastrointestinal: Non Tender, Soft Rectal: Deferred Back: Normal Inspection, No CVA Tenderness Extremity: Non Tender, No Calf Tenderness Neurologic/Psychiatric: Alert, Oriented x3, No Motor/Sensory Deficits, Normal Mood/Affect Skin: Warm/Dry Results Lab Laboratory Tests 02/18/21 05:37: White Blood Count 11.0, Red Blood Count 4.14, Hemoglobin 12.1, Hematocrit 37, Mean Corpuscular Volume 90, Mean Corpuscular Hemoglobin 29, Mean Corpuscular Hemoglobin Concent 32, Red Cell Distribution Width 12.1, Platelet Count 313, Mean Platelet Volume 10.0, Sodium Level 142, Potassium Level 4.2, Chloride Level 102, Carbon Dioxide Level 28, Anion Gap 12, Blood Urea Nitrogen 12, Creatinine 0.75, Estimat Glomerular Filtration Rate 80, BUN/Creatinine Ratio 16, Glucose Level 123H, Calcium Level 9.0, Corrected Calcium 9.4, Total Bilirubin 0.4, Aspartate Amino Transf (AST/SGOT) 26, Alanine Aminotransferase (ALT/SGPT) 32, Alkaline Phosphatase 64, Total Protein 6.6, Albumin 3.5 Microbiology 02/13/21 Blood Culture - Preliminary, Resulted No growth Assessment/Plan Assessment/Plan Admission Dx COVID-19 INFECTION ACUTE RESPIRATORY FAILURE WITH HYPOXIA PNEUMONIA HYPERTENSION WEAKNESS Assessment and Plan COVID-19 INFECTION ACUTE RESPIRATORY FAILURE WITH HYPOXIA PNEUMONIA HYPERTENSION WEAKNESS COVID-19 INFECTION WITH ACUTE RESPIRATORY FAILURE WITH HYPOXIA - PT ON REMDESIVIR, ANTIBIOTICS, STEROIDS, BREATHING TREATMENTS. - OXYGEN HAS BEEN WEANED DOWN FROM VAPOTHERM TO HIGH FLOW NC, SHE WILL NEED TO BE EVALUATED FOR OXYGEN PRIOR TO DISCHARGE TO DETERMINE EXTENT OF NEED. - SHE REQUIRED 15 LITERS OXYGEN NC WHEN ACTIVE TO KEEP OXYGEN ABOVE 90% - CANNOT GO HOME WITH SUCH A HIGH OXYGEN REQUIREMENT. PNEUMONIA - SUPPORTIVE CARE, IV ANTIBIOTICS HYPERTENSION - HOME MEDICATION REGIMEN DECREASED FROM 25MGam AND 50MG hs OF METOPROLOL TO 25MG BID. WEAKNESS - WILL NEED THERAPY ON DC. Admission Dx COVID-19 INFECTION ACUTE RESPIRATORY FAILURE WITH HYPOXIA PNEUMONIA HYPERTENSION WEAKNESS Clinical Quality Measures Admission Status Admission Dx COVID-19 INFECTION ACUTE RESPIRATORY FAILURE WITH HYPOXIA PNEUMONIA HYPERTENSION WEAKNESS ROSALBA PARRY MD Feb 18, 2021 12:43
[2021-02-18 15:50] VITALS: BP 102/59
[2021-02-18 19:25] VITALS: BP 113/64
[2021-02-18] MEDS: ACETAMINOPHEN 500 MG TAB (TYLENOL) PO PRN (20:42)
[2021-02-18] MEDS: polyethylene glycoL POWDER 17 GM (MIRALAX) PACK PO SCH (20:46)
[2021-02-19 00:18] VITALS: BP 121/55
[2021-02-19 04:01] VITALS: BP 123/55
[2021-02-19 07:27] VITALS: BP 116/70
[2021-02-19] MEDS: RT-ALBUTEROL INHALER HFA (VENTOLIN HFA) 18 GM IH SCH ×2 (08:31→18:08)
[2021-02-19] MEDS: DOCUSATE SODIUM 100 MG (COLACE) CAP PO SCH ×2 (08:41→20:18)
[2021-02-19] MEDS: ENOXAPARIN 40 MG/0.4 ML (LOVENOX) SYR SC SCH (08:42)
[2021-02-19] MEDS: guaiFENesin (MUCINEX) 600 MG TAB PO SCH ×2 (08:42→20:18)
--- NOTE | 2021-02-19 09:28 | Diagnostic Imaging Report ---
INDICATION: Pneumonia. Comparison made with prior examination from 02/17/2021 FINDINGS: The heart size is normal. There are patchy bilateral pulmonary infiltrates. There is no pleural effusion or pneumothorax. The mediastinum is unremarkable. IMPRESSION: Patchy bibasilar infiltrate suspect for atypical pneumonia possibly COVID. Recommend clinical correlation. Report was faxed to [facility] by leisa at 9:27AM. Dictated by: Dictated on workstation # [id number]
[2021-02-19] MEDS: cefTRIAXone 1,000 MG in WATER (STERILE) FOR INJECTION 10 ML IV SCH (09:39)
[2021-02-19 11:47] VITALS: BP 113/69
[2021-02-19 15:38] VITALS: BP 118/60
[2021-02-19 19:26] VITALS: BP 106/57
[2021-02-19] MEDS: polyethylene glycoL POWDER 17 GM (MIRALAX) PACK PO SCH (21:10)
[2021-02-20 00:09] VITALS: BP 120/68
[2021-02-20] MEDS: RT-ALBUTEROL INHALER HFA (VENTOLIN HFA) 18 GM IH SCH (07:01)
[2021-02-20 07:57] VITALS: BP 115/63
[2021-02-20] MEDS: DOCUSATE SODIUM 100 MG (COLACE) CAP PO SCH (08:34)
[2021-02-20] MEDS: cefTRIAXone 1,000 MG in WATER (STERILE) FOR INJECTION 10 ML IV SCH (08:34)
[2021-02-20] MEDS: polyethylene glycoL POWDER 17 GM (MIRALAX) PACK PO SCH (08:35)
[2021-02-20] MEDS: guaiFENesin (MUCINEX) 600 MG TAB PO SCH (08:35)
[2021-02-20] MEDS: ENOXAPARIN 40 MG/0.4 ML (LOVENOX) SYR SC SCH (08:35)
[2021-02-20 11:30] VITALS: BP 101/56
--- NOTE | 2021-02-20 12:24 | D/C HH Face to Face Order ---
D/C Face to Face Orders Reconcile Patient Problems Problems Reviewed?: Yes Instructions for Patient Via [employer], Patient Instructions/FollowUp: 1 wk [facility] Physician to follow Patient: zoraida Discharge Diet for Home: Regular Diet Patient Problems: COVID-19 INFECTION ACUTE RESPIRATORY FAILURE WITH HYPOXIA PNEUMONIA HYPERTENSION WEAKNESS Goals for Patient: improved strength and weaning off of oxygen Patient Data-Allergies,Ht & Wt Patient Allergies: Coded Allergies: Sulfa (Sulfonamide Antibiotics) (Unverified Allergy, Unknown, 04/05/18) Height (Feet): 5 Height (Inches): 8.00 Weight (Pounds): 136 Weight (Ounces): 0.0 Home Health Need/Face to Face Date of Face to Face: Feb 20, 2021 Clinical Findings: Generalized weakness and fatigue, Muscle weakness, Shortness of breath I have seen Pt [id number]: Yes Discharged To: Home Diagnosis/Conditions: COVID-19 INFECTION ACUTE RESPIRATORY FAILURE WITH HYPOXIA PNEUMONIA HYPERTENSION WEAKNESS Patient is Homebound due to: Shortness of breath/distress Homebound Status Due to the above stated illness, injury or surgical procedure (medical condition or diagnosis) and associated clinical findings, the patient is homebound because of his/her inability to leave home except with aid of a supportive device and/or person AND leaving the home requires a considerable and taxing effort or is medically contraindicated. Pt req the following assistanc: Aid of another person Home Health Nursing Orders Home Health Services Order: Nursing Services, Physical Therapy-Evaluate & Treat oxygen at 5 liters oxygen with ambulation and at rest cbc, cmp in 1 week pt for strengthening Home Health Infusion Therapy Line Start Date: Feb 13, 2021 Therapy Orders Therapy Orders: Physical Therapy, PT to assess for OT Therapy Specific Orders: Increase strength/endurance Certify Stmt I certify that this patient is under my care and that I, a nurse practitioner or a physician; a religious assistant working with me, had a face to face encounter that - meets the physician face to face encounter requirements with this patient as dated. ROSALBA PARRY MD Feb 20, 2021 12:24
[2021-02-20] MEDS ORDERED: CEFD300C3 PO (12:30)
--- NOTE | 2021-02-20 12:37 | Progress Note ---
Subjective Subjective Date Seen by Provider: Feb 19, 2021 Time Seen by Provider: 08:50 PT IS A 55 Y/O FEMALE WHO HAS DX OF COVID-19 AND WAS ADMITTED FOR RESPIRATORY FAILURE ATTRIBUTED TO THE INFECTION. PT REPORTS THAT SHE IS SHORT OF BREATH WITH ANY ACTIVITY, BUT SHE IS BETTER THAN YESTERDAY - SHE STATES THAT SHE FEELS LIKE SHE MAY BE READY TO GO HOME TOMORROW Review of Systems General: No Chills, No Night Sweats; Fatigue, Malaise HEENT: Head Aches Pulmonary: Dyspnea, Cough Cardiovascular: Chest Pain Gastrointestinal: No: Nausea, Vomiting, Abdominal Pain Genitourinary: No Dysuria Musculoskeletal: No: neck pain Neurological: Weakness; No: Confusion All Other Systems Reviewed All Other Systems Reviewed: Yes Objective Exam Vital Signs Vital Signs Date Time Temp Pulse Resp B/P (MAP) Pulse Ox O2 Delivery O2 Flow Rate FiO2 02/20/21 11:30 36.4 80 20 101/56 (71) 94 High Flow N/C 4.50 02/20/21 08:30 High Flow N/C 4.00 02/20/21 07:57 36.7 82 20 115/63 (80) 96 High Flow N/C 4.50 02/20/21 07:27 90 80 02/20/21 07:02 93 Room Air 5.00 02/20/21 07:00 62 02/20/21 01:59 93 High Flow N/C 4.50 02/20/21 01:00 56 02/20/21 00:09 36.5 67 20 120/68 (85) 93 High Flow N/C 4.50 02/19/21 21:25 94 High Flow N/C 4.00 02/19/21 20:49 93 High Flow N/C 4.00 02/19/21 19:26 36.3 71 20 106/57 (73) 97 High Flow N/C 4.50 02/19/21 19:00 81 02/19/21 18:08 91 High Flow N/C 5.00 02/19/21 15:38 36.4 63 20 118/60 (79) 93 High Flow N/C 3.00 02/19/21 12:56 69 I & O 02/20/21 07:00 Intake Total 2500 ml Balance 2500 ml General Appearance: No Apparent Distress, WD/WN Eyes: Bilateral Eye Normal Inspection, Bilateral Eye PERRL, Bilateral Eye EOMI HEENT: PERRL/EOMI Neck: Non Tender, Supple Respiratory: Chest Non Tender, No Accessory Muscle Use, No Respiratory Distress, Decreased Breath Sounds, Rhonci Cardiovascular: Regular Rate, Rhythm Gastrointestinal: Non Tender, Soft Rectal: Deferred Back: Normal Inspection, No CVA Tenderness Extremity: Non Tender, No Calf Tenderness Neurologic/Psychiatric: Alert, Oriented x3, No Motor/Sensory Deficits, Normal Mood/Affect Skin: Warm/Dry Results Lab Microbiology 02/13/21 Blood Culture - Final, Complete No growth Assessment/Plan Assessment/Plan Admission Dx COVID-19 INFECTION ACUTE RESPIRATORY FAILURE WITH HYPOXIA PNEUMONIA HYPERTENSION WEAKNESS Assessment and Plan COVID-19 INFECTION ACUTE RESPIRATORY FAILURE WITH HYPOXIA PNEUMONIA HYPERTENSION WEAKNESS COVID-19 INFECTION WITH ACUTE RESPIRATORY FAILURE WITH HYPOXIA - PT ON REMDESIVIR, ANTIBIOTICS, STEROIDS, BREATHING TREATMENTS. - OXYGEN HAS BEEN WEANED DOWN FROM VAPOTHERM TO HIGH FLOW NC, SHE WILL NEED TO BE EVALUATED FOR OXYGEN PRIOR TO DISCHARGE TO DETERMINE EXTENT OF NEED. - SHE REQUIRED 15 LITERS OXYGEN NC WHEN ACTIVE TO KEEP OXYGEN ABOVE 90% - CANNOT GO HOME WITH SUCH A HIGH OXYGEN REQUIREMENT. - HAVE WEANED DOWN OXYGEN FROM 10 TO 5 LITERS. -PT STARTED ON AZITHROMYCIN AND ROCEPHIN PNEUMONIA - SUPPORTIVE CARE, IV ANTIBIOTICS -PT STARTED ON AZITHROMYCIN AND ROCEPHIN HYPERTENSION - HOME MEDICATION REGIMEN DECREASED FROM 25MGam AND 50MG hs OF METOPROLOL TO 25MG BID. WEAKNESS - WILL NEED THERAPY ON DC. Admission Dx COVID-19 INFECTION ACUTE RESPIRATORY FAILURE WITH HYPOXIA PNEUMONIA HYPERTENSION WEAKNESS Clinical Quality Measures Admission Status Admission Dx COVID-19 INFECTION ACUTE RESPIRATORY FAILURE WITH HYPOXIA PNEUMONIA HYPERTENSION WEAKNESS ROSALBA PARRY MD Feb 20, 2021 12:37
[2021-02-20 14:38] VITALS: BP 112/73
[2021-02-20 19:29] VITALS: BP 112/73
== END 2021-02-20 19:30 | disposition home health service (06) | DRG 177 ==
LOC: EDUNIT# 17:15 → ER 17:16 → 4TH 20:40 → EDPENDDISDT 02-20 13:30 → EDPENDDISTM 02-20 13:30
PROVIDERS: ADMIT Family Medicine; ATTEND Family Medicine
PROC: XW033E5 Introduction of Remdesivir Anti-infective into Peripheral Vein, Percutaneous Approach, New Technology Group 5 (ICD-10-PCS; principal; 2021-02-13)
PROC: 8E0ZXY6 Isolation (ICD-10-PCS; 2021-02-13)
DX: U07.1 COVID-19 (principal); J12.82 Pneumonia due to coronavirus disease 2019; J96.01 Acute respiratory failure with hypoxia; F17.290 Nicotine dependence, other tobacco product, uncomplicated; E78.5 Hyperlipidemia, unspecified; F41.9 Anxiety disorder, unspecified; R53.1 Weakness
CPT/HCPCS: 36415; 71045; 80048; 80053; 80069; 82805; 82947; 83605; 84145; 84484; 85007; 85025; 85027; 85610; 85730; 86141; 87040; 87636; 93005; 94640; 94760; 94761; 96361; 96374

== ENCOUNTER 2021-04-08 11:14 | Outpatient (RCR) | payer OTHER ==
[~2021-04-08 11:14] MED LIST changes: +ALBU18HF2 IH; +AZIT250T12 PO; +BUSP5TAB59 PO; +CEFD300C3 PO; +DEXA2TAB PO; +ELDE1CAP PO; +GUAI600T43 PO; +LACT1CAP72 PO; +METO50TA7 PO; +MINO100C5 PO; +MTP25TSR PO; +MULT-1060 PO; +PROM473S9 PO; +RT-ALBUINH INH; +TRIA10.8 NSEACH
== END 2021-04-08 12:05 | disposition home or self-care (01) ==
PROVIDERS: ATTEND Family Medicine
DX: R53.1 Weakness (principal); B94.8 Sequelae of other specified infectious and parasitic diseases

== ENCOUNTER → 2021-08-17 | Outpatient (CLI) | payer OTHER | LOC: CARD 15:00 | PROVIDERS: ATTEND Physician Assistant | DX: I10 Essential (primary) hypertension (principal); I25.10 Atherosclerotic heart disease of native coronary artery without angina pectoris | CPT/HCPCS: 93306 ==